=== PATIENT | male | born 1950 | race Caucasian/White ===

== ENCOUNTER 2016-12-10 13:48 | Inpatient (IN) | payer BC ==
[~2016-12-10] VITALS: Ht 160 cm; Wt 80.4 kg
[2016-12-10] MEDS ORDERED: HYDR-3516 PO (15:12)
[2016-12-10] MEDS ORDERED: MULTTAB67 PO (15:13)
[2016-12-10] MEDS ORDERED: MSM500CA PO (15:13)
[2016-12-10 17:45] VITALS: BP 170/77; PULSE 107; RESP 20; TEMP 98.3; O2SAT 99
[2016-12-10] MEDS ORDERED: SODIUM CHLORIDE FLUSH PRN IVF (18:45)
[2016-12-10] MEDS ORDERED: MORPHINE SULFATE 10 MG/ML INJ IM PRN (18:45)
[2016-12-10] MEDS ORDERED: MORPHINE SULFATE 8 MG/ML INJ IM PRN (18:58)
--- NOTE | 2016-12-10 19:38 | PD.RAD ---
Post Procedure Progress Note Pre Procedure Diagnosis: (1) Cellulitis and abscess of leg Post Procedure Diagnosis: (1) Cellulitis and abscess of leg Procedure Date: Dec 10, 2016 Supervising Radiologist: Gino Bennett Proceduralist/Assist: Rosetta Ruiz, RT(R)(), Marissa Haq RT(R)() Anesthesia: Local Plan of Activity Patient to Unit: Nursing Unit Patient Condition: Good See PACS Report for procedural detail/treatment Drainage Procedure Procedure 1 Imaging Guidance: Ultrasound Procedure Type: Abscess Drainage (left thigh) Procedure: Placement Norwegian: 8 Drainage: Suction (Accordian) Fluid Description: Purulent Gino Bennett MD Dec 10, 2016 19:38
[2016-12-10 20:00] VITALS: BP 163/75; PULSE 97; RESP 18; TEMP 99.2; O2SAT 99
[2016-12-10] MEDS: SODIUM CHLORIDE FLUSH BID IVF SCH (20:35)
[2016-12-11] VITALS (7 sets, daily range): BP systolic 146–164; BP diastolic 66–85; PULSE 82–106; RESP 16–20; TEMP 98–98.6; O2SAT 96–98
[2016-12-11] MEDS: ACETAMINOPHEN/HYDROcodone 325 MG/7.5 MG TAB PO PRN ×3 (00:25→12:35)
--- NOTE | 2016-12-11 10:02 | PD.ORT.PN ---
Subjective Subjective Remarks pt states he has significant decreased pain involving his left thigh after aspiration by I.R. he was able to sleep for first time in 3 weeks no SOB, no chest pain patient states his PCP is Dr. Aguilera who he has not seen in more than 3 years Objective Vitals Vital Signs Date Time Temp Pulse Resp B/P Pulse Ox O2 Delivery O2 Flow Rate FiO2 12/11/16 08:02 98.0 86 20 164/66 98 12/11/16 04:00 98.0 82 16 150/77 97 12/11/16 00:00 98.6 92 16 163/69 98 12/10/16 20:45 Room Air 12/10/16 20:00 99.2 97 18 163/75 99 12/10/16 17:45 98.3 107 20 170/77 99 Objective Remarks seen by Dr. Vicente Mcmanus L thigh swelling improved, pig tail catheter left thigh erythema improved +NVI Assessment & Plan Assessment and Plan L thigh probable abscess await cultures from L thigh aspiration ordered stat blood cultures await I.D. E&M continue drainage left thigh abscess by catheter Rebekah Dudley Dec 11, 2016 10:02
--- NOTE | 2016-12-11 10:24 | MH ---
cc: EVERETT VILLAFUERTE M.D. DATE OF ADMISSION 12/10/2016 CHIEF COMPLAINT Left thigh pain. HISTORY OF PRESENT ILLNESS This is a 66-year-old male who presents with the following history. The patient states that three weeks ago, he had the insidious onset of left thigh pain. At this time, the patient was under the care of my associate, Dr. Nahun Snyder. He was undergoing Synvisc injections to the knee for arthritis of the knee. The patient works building [employer]. He was using a ladder and felt that he strained a muscle in his left thigh. The patient developed pain and swelling of the thigh. MRI scan the left thigh at [facility] reported a left thigh hematoma formation. The patient was seen in the office on December 10, 2016 by myself for the first time. The patient had significant pain, swelling and erythema to the thigh area. The patient was admitted to the hospital. Blood work showed the patient had a probable abscess involving the left thigh instead of a hematoma. He had an elevated white count of 23,000. The patient also had an elevated glucoses of 368. The patient's primary care physician is Dr. Aguilera. He states he has not seen Dr. Aguilera in more than three years. The patient states he does not take medications for medical illnesses. PAST MEDICAL HISTORY See accompanying records. SOCIAL HISTORY The patient does not drink or smoke cigarettes. Denies IV or oral substance abuse. He lives at home with his . FAMILY HISTORY Negative REVIEW OF SYSTEMS Negative PHYSICAL EXAM This is a 66-year-old male who looks his stated age. LUNGS: Clear. CARDIAC: Regular rate and rhythm. No murmurs. ABDOMEN: Bowel sounds audible. No organomegaly. EXTREMITIES: Left thigh has a marked degree of swelling, tenderness, erythema anteriorly and laterally. No swelling to the knee joint. Good range of motion of the hip with no symptoms. NEUROVASCULAR: Examination is intact. The patient has no significant pain with passive range motion of the muscles in the anterior compartment of the thigh. The patient has diminished, but palpable pulses. IMPRESSION 1. Left thigh abscess 2. Diabetes mellitus PLAN The patient will be admitted to hospital. Consultation was made with infectious disease and also with hospitalist for infectious disease evaluation management and also for medical evaluation and management. I contacted intervention radiology and they recommended he undergo an ultrasound-guided aspiration and insertion of catheter. Also recommend that the radiologist obtained Gram stain, culture and sensitivity, aerobic, anaerobic and fungal smear and culture, AFB smear and culture of the specimen taken from the left thigh. Depending upon how the patient responds, it would be dependent upon if he is required to have a formal incision and drainage of the abscess. Also will obtain blood cultures. MD BRYSON Lee/CHASE /10:05 AM /10:12 AM OJ
--- NOTE | 2016-12-11 11:26 | PD.CONS ---
[facility] Consult Requested By Dr Mcmanus Reason for Consult medical management Primary Care Physician Skyler Aguilera DO Diagnoses: History of Present Illness 66-year-old male without significant past medical history for evaluation persistent pain last 3 weeks. He is status post injection of the left knee [address] Christian. Arthritis of the knee. 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 The patient developed pain and swelling of the thigh. MRI scan of the left thigh was shown left thigh hematoma. The patient was seen in the office by Dr. Rubi on December 10 2016 and was sent to [facility]. However she has not seen his primary care physician Dr. Aguilera for 3 years. Patient states he is not in any medications. He status post incision and drainage by IR. He denies fever or chills no nausea vomiting position. Pains, erythema and edema is improving. Review of Systems ROS reviewed and negative except as mentioned in HPI Past Family Social History Allergies: Coded Allergies: No Known Allergies (Unverified , 12/10/16) Past Medical History Prediabetes Past Surgical History Left shoulder surgery BL knee surgery Reported Medications Reported Meds & Active Scripts Active Reported Multiple Vitamin 1 Tab 1 Tab PO DAILY Msm (Methylsulfonylmethane) 500 Mg Cap 500 Mg PO DAILY Hydrocodone-Acetaminophen 5-325 mg Tab 1 Tab PO Q4H PRN Family History Adopted, doesn't know biological parents Social History Denies EtOH , tobacco use or illicit drug use. Physical Exam Vital Signs Vital Signs Date Time Temp Pulse Resp B/P Pulse Ox O2 Delivery O2 Flow Rate FiO2 12/11/16 08:02 98.0 86 20 164/66 98 12/11/16 04:00 98.0 82 16 150/77 97 12/11/16 00:00 98.6 92 16 163/69 98 12/10/16 20:45 Room Air 12/10/16 20:00 99.2 97 18 163/75 99 12/10/16 17:45 98.3 107 20 170/77 99 Physical Exam GENERAL: This is a well-nourished, well-developed patient, in no apparent distress. SKIN: No rashes, ecchymoses or lesions. Cool and dry. HEAD: Atraumatic. Normocephalic. No temporal or scalp tenderness. EYES: Pupils equal round and reactive. Extraocular motions intact. No scleral icterus. No injection or drainage. ENT: Nose without bleeding, purulent drainage or septal hematoma. Throat without erythema, tonsillar hypertrophy or exudate. Uvula midline. Airway patent. NECK: Trachea midline. No JVD or lymphadenopathy. Supple, nontender, no meningeal signs. CARDIOVASCULAR: Regular rate and rhythm without murmurs, gallops, or rubs. RESPIRATORY: Clear to auscultation. Breath sounds equal bilaterally. No wheezes , rales, or rhonchi. GASTROINTESTINAL: Abdomen soft, non-tender, nondistended. No hepato-splenomegaly , or palpable masses. No guarding. MUSCULOSKELETAL: Left thigh with pigtail in place . Less edema and erythema . Extremities without clubbing, cyanosis, or edema. No joint tenderness, effusion , or edema noted. No calf tenderness. Negative Homans sign bilaterally. NEUROLOGICAL: Awake and alert. Cranial nerves II through XII intact. Motor and sensory grossly within normal limits. Five out of 5 muscle strength in all muscle groups. Normal speech. Laboratory Date/Time Procedure Status Source Growth 12/11/16 10:50 Aerobic Blood Culture Received Blood Peripheral Pending 12/11/16 10:50 Anaerobic Blood Culture Received Blood Peripheral Pending 12/10/16 19:00 Gram Stain - Final Resulted Abscess Leg 12/10/16 19:00 Wound Culture Resulted Abscess Leg Pending 12/10/16 19:00 Fungal Smear - Final Resulted Abscess Leg NO FUNGAL ELEMENTS SEEN. 12/10/16 19:00 Fungal Culture Resulted Abscess Leg Pending Assessment and Plan Assessment and Plan L thigh probable abscess Cultures from L thigh aspiration are pending Consult ID if need Continue IV abx Continue drainage left thigh abscess by catheter. Ortho team following. Pain meds per pain scale. Laxatives, antiemetics, antipyretics as need. Monitor Will check a1c. Patient says he has prediabetes and is diet/exercise controlled. DVT ppx SCD/TERDs , chemical ppx per surgeon Discussed Condition With patient, nurse, familyt at bedside. Joselyn Pham MD Dec 11, 2016 11:26
[2016-12-11 12:02] LABS: BASOPHIL % 0.2 % (0.0-2.0); EOSINOPHIL # 0.1 TH/MM3 (0-0.4); EOSINOPHIL % 0.6 % (0.0-4.0); HEMATOCRIT 33.4 % (39.0-51.0); LYMPH % 8.3 % (9.0-44.0); LYMPHOCYTE # 1.3 TH/MM3 (1.0-4.8); MEAN CELL VOLUME 88.7 FL (80.0-100.0); MEAN CORPUSCULAR HEMOGLOBIN 30.5 PG (27.0-34.0); MEAN CORPUSCULAR HGB CONC 34.4 % (32.0-36.0); MONO % 9.8 % (0.0-8.0); NEUT % 81.1 % (16.0-70.0); PLATELET COUNT 411 TH/MM3 (150-450); RED BLOOD COUNT 3.76 MIL/MM3 (4.50-5.90); RED CELL DISTRIBUTION WIDTH 12.7 % (11.6-17.2); WHITE BLOOD COUNT 16.1 TH/MM3 (4.0-11.0)
[2016-12-11 12:19] LABS: HEMO FLAGS AUTO DIFF
[2016-12-11 12:53] LABS: MYELOCYTES 1 % (0-0); NEUTROPHIL # MANUAL DIFF 14.7 TH/MM3 (1.8-7.7); PLATELET ESTIMATE SMEAR NORMAL (NORMAL); PLATELET MORPHOLOGY NORMAL (NORMAL); POLYS (SEG NEUTROPHILS) 90 % (16-70); SCAN/DIFF FINAL DIFF MANUAL; WBC DIFF SAMPLE 100
[2016-12-11] MEDS ORDERED: VANCOMYCIN INJ 1,000 MG in SODIUM CHLOR 0.9% 250 ML INJ 250 ML IV ONE (13:30)
[2016-12-11] MEDS ORDERED: NALOXONE HCL 0.4 MG/ML AMP IV PRN (13:30)
[2016-12-11] MEDS ORDERED: Vancomycin Consult Pharmacy 1 EA OTHER SCH (13:30)
[2016-12-11] MEDS ORDERED: MORPHINE SULFATE 4 MG/ML INJ IV PRN ×3 (14:00)
[2016-12-11] MEDS: ceFAZolin 2 GM PREMIX 50 ML IV SCH ×2 (14:41→21:32)
[2016-12-11] MEDS: SODIUM CHLORIDE FLUSH BID IVF SCH ×2 (14:48→19:55)
--- NOTE | 2016-12-11 15:09 | PD.CONS ---
History of Present Illness Service Infectious disease Consult Requested By Dr. Vicente Mcmanus Reason for Consult Evaluate patient for possible infected hematoma Primary Care Physician Skyler Aguilera DO Diagnoses: History of Present Illness Patient seen and examined. Records reviewed. Patient is a 66-year-old male admitted to the hospital for further evaluation of the redness and swelling, and pain on his left thigh. Patient 5 weeks ago started undergoing Synvisc injections to the knee for arthritis of the knee. Patient had his first 2 injections which was placed on the lateral aspect of his left knee. It is about a week apart. Right before he is scheduled for his third injection he started experiencing pain, some mild swelling, as well as some mild redness on his left thigh. He had his third injection which was on the medial aspect now all of his left knee. The redness pain and swelling started worsening, and he apparently had an MRI of the left thigh which showed findings all torn muscle and some hematoma formation. He was not improving so he was seen again in follow-up and another MRI was done. There was some concerns now that this is becoming an abscess so the patient was brought to the hospital for further management. He was initially scheduled to have surgery, but he underwent aspiration of the fluid by interventional radiologist. Patient denies any fever or chills or sweats. He has not had any recent infection of the skin, respiratory infection, urinary infection, or any kind of dental infection. Patient is edentulous and wears upper and lower dentures and has had this for at least 5 years or more. 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 He denies any urinary complaints. He has had blood work done prior to admission his white count was elevated. His white count here is been 16,000. His been afebrile. Infectious disease consultation is requested to evaluate the patient. Review of Systems Constitutional: DENIES: Fever, Chills, Night Sweats Eyes: DENIES: Eye pain Ears, nose, mouth, throat: DENIES: Nasal discharge, Oral lesions, Throat pain, Ear Pain, Running Nose, Sinus Pain Respiratory: DENIES: Cough, Shortness of breath Cardiovascular: DENIES: Chest pain Gastrointestinal: DENIES: Abdominal pain, Diarrhea, Nausea, Vomiting, Difficulty Swallowing Genitourinary: DENIES: Hematuria, Dysuria Musculoskeletal: COMPLAINS OF: Joint pain, Joint Swelling Integumentary: DENIES: Rash Hematologic/lymphatic: DENIES: Lymphadenopathy Immunologic/allergic: DENIES: Urticaria Neurologic: DENIES: Headache Psychiatric: DENIES: Anxiety, Confusion, Hallucinations Past Family Social History Allergies: Coded Allergies: No Known Allergies (Unverified , 12/10/16) Past Medical History ?Prediabetes Past Surgical History L shoulder surgery Chaim knee arthroscopy Active Ordered Medications Rozel Morphine Social History No smoking No ETOH abuse No illicit drug use Physical Exam Vital Signs Vital Signs Date Time Temp Pulse Resp B/P Pulse Ox O2 Delivery O2 Flow Rate FiO2 12/11/16 08:02 Room Air 12/11/16 08:02 98.0 86 20 164/66 98 12/11/16 04:00 98.0 82 16 150/77 97 12/11/16 00:00 98.6 92 16 163/69 98 12/10/16 20:45 Room Air 12/10/16 20:00 99.2 97 18 163/75 99 12/10/16 17:45 98.3 107 20 170/77 99 Physical Exam GENERAL: This is a well-nourished, well-developed male, awake and alert, in no apparent distress. SKIN: Cool and dry. No generalized rash, ecchymosis or embolic lesions. HEAD: Atraumatic. Normocephalic. No temporal or scalp tenderness. EYES: [place] conjunctivae no particular hemorrhage. Pupils equal round and reactive. Extraocular motions intact. No scleral icterus. No injection or drainage. ENT: Nose without bleeding, or purulent drainage. Wears upper and lower dentures. Throat without erythema, or exudate. Uvula midline. Airway patent. NECK: Trachea midline. No JVD or lymphadenopathy. Supple, nontender, no meningeal signs. CARDIOVASCULAR: Regular rate and rhythm without murmurs, gallops, or rubs. RESPIRATORY: Clear to auscultation. Breath sounds equal bilaterally. No wheezes , rales, or rhonchi. GASTROINTESTINAL: Abdomen soft, non-tender, nondistended. Bowel sounds are present and normoactive. No hepato-splenomegaly, or palpable masses. No guarding. MUSCULOSKELETAL: Extremities without clubbing, cyanosis, or edema in RLE. LLE - knee is swollen, there is erythema on anterior thigh and L knee, indurated and tender to touch, has percutaneous drain in place with seroanguineous fluid. very limited ROM in the L knee. No calf tenderness. Negative Homans sign bilaterally. NEUROLOGICAL: Awake and alert. Cranial nerves II through XII intact. Motor and sensory grossly within normal limits. Five out of 5 muscle strength in all muscle groups. Normal speech. PSYCH: Calm and cooperative LINE: PIV with no evidence of infection Laboratory Laboratory Tests Test 12/11/16 11:49 White Blood Count 16.1 Red Blood Count 3.76 Hemoglobin 11.5 Hematocrit 33.4 Mean Corpuscular Volume 88.7 Mean Corpuscular Hemoglobin 30.5 Mean Corpuscular Hemoglobin 34.4 Concent Red Cell Distribution Width 12.7 Platelet Count 411 Mean Platelet Volume 7.6 Neutrophils (%) (Auto) 81.1 Lymphocytes (%) (Auto) 8.3 Monocytes (%) (Auto) 9.8 Eosinophils (%) (Auto) 0.6 Basophils (%) (Auto) 0.2 Neutrophils # (Auto) 13.0 Lymphocytes # (Auto) 1.3 Monocytes # (Auto) 1.6 Eosinophils # (Auto) 0.1 Basophils # (Auto) 0.0 CBC Comment AUTO DIFF Differential Total Cells 100 Counted Neutrophils % (Manual) 90 Lymphocytes % 3 Monocytes % 6 Neutrophils # (Manual) 14.7 Myelocytes 1 Differential Comment FINAL DIFF MANUAL Platelet Estimate NORMAL Platelet Morphology Comment NORMAL Date/Time Procedure Status Source Growth 12/11/16 10:50 Aerobic Blood Culture Received Blood Peripheral Pending 12/11/16 10:50 Anaerobic Blood Culture Received Blood Peripheral Pending 12/10/16 19:00 Gram Stain - Final Resulted Abscess Leg 12/10/16 19:00 Wound Culture Resulted Abscess Leg Pending 12/10/16 19:00 Fungal Smear - Final Resulted Abscess Leg NO FUNGAL ELEMENTS SEEN. 12/10/16 19:00 Fungal Culture Resulted Abscess Leg Pending Result Diagram: 12/11/16 1149 Assessment and Plan Assessment and Plan IMPRESSION Infected hematoma, L thigh, abscess Likely with diabetes RECOMMENDATION Follow C/S Baseline labs - ESR, CRP, CMP IV Vanco IV Ancef G/S shows GPC in pairs and clusters, likely Staph Monitor progress I will follow along with you Thank you for this consultation Discussed Condition With Explained plan to patient and Lisha Mcclendon MD Dec 11, 2016 15:09
[2016-12-11 15:33] LABS: ALT (GPT) 11 U/L (12-78); ANION GAP 10 MEQ/L (5-15); AST (GOT) 11 U/L (15-37); BICARBONATE 24.1 MEQ/L (21.0-32.0); BLOOD UREA NITROGEN 16 MG/DL (7-18); CHLORIDE 98 MEQ/L (98-107); POTASSIUM 3.6 MEQ/L (3.5-5.1); SODIUM (NA) 132 MEQ/L (136-145)
[2016-12-11 15:39] LABS: ALKALINE PHOSPHATASE 104 U/L (45-117); TOTAL BILIRUBIN ADULT 0.3 MG/DL (0.2-1.0)
[2016-12-11] MEDS: VANCOMYCIN INJ 1,250 MG in SODIUM CHLOR 0.9% 250 ML INJ 250 ML IV SCH (17:04)
[2016-12-11] MEDS: ACETAMINOPHEN/HYDROcodone 325 MG/10 MG TAB PO PRN (19:56)
[2016-12-12] VITALS: BP 166/79; PULSE 88; RESP 18; TEMP 98.5; O2SAT 97
[2016-12-12] MEDS: MORPHINE SULFATE 4 MG/ML INJ IV PRN ×2 (00:07→14:14)
[2016-12-12] MEDS: LACTATED RINGER'S 1000 ML INJ 1,000 ML IV SCH ×2 (00:45→20:45)
[2016-12-12] MEDS: VANCOMYCIN INJ 1,250 MG in SODIUM CHLOR 0.9% 250 ML INJ 250 ML IV SCH (03:27)
[2016-12-12] MEDS: ACETAMINOPHEN/HYDROcodone 325 MG/10 MG TAB PO PRN ×4 (03:27→21:36)
[2016-12-12 04:00] VITALS: BP 164/75; PULSE 88; RESP 16; TEMP 98; O2SAT 98
[2016-12-12] MEDS: ceFAZolin 2 GM PREMIX 50 ML IV SCH ×3 (05:37→21:34)
--- NOTE | 2016-12-12 06:51 | PD.ORT.PN ---
Subjective Subjective Remarks Continued decreased L thigh pain No sob,no chest pain Objective Vitals Vital Signs Date Time Temp Pulse Resp B/P Pulse Ox O2 Delivery O2 Flow Rate FiO2 12/12/16 04:00 98.0 88 16 164/75 98 12/12/16 00:00 98.5 88 18 166/79 97 12/11/16 20:00 97 Room Air 12/11/16 20:00 98.2 93 18 146/85 97 12/11/16 16:02 98.0 85 18 158/75 98 12/11/16 15:00 90 12/11/16 12:02 98.2 106 20 158/70 96 12/11/16 08:02 Room Air 12/11/16 08:02 98.0 86 20 164/66 98 I/O 12/11/16 12/11/16 12/11/16 12/12/16 12/12/16 12/12/16 07:00 15:00 23:00 07:00 15:00 23:00 Intake Total 1250 ml 240 ml 240 ml Output Total 720 ml 745 ml 925 ml Balance 530 ml -505 ml -685 ml Intake Oral 1250 ml 240 ml 240 ml Output Urine Total 720 ml 700 ml 900 ml Drainage Total 0 ml 45 ml 25 ml # Voids 2 # Bowel Movements 1 1 0 Result Diagram: 12/11/16 1149 12/11/16 1500 Objective Remarks No L knee pain,swelling L thigh swelling improved, pig tail catheter left thigh erythema improved +NVI Assessment & Plan Assessment and Plan L thigh abscess;h/o diabetes Await cultures from L thigh aspiration;+ Staph,await sensitivities Ordered blood cultures-still pending Patient responding well to current treatment;no indication for surgical I&D at this time Appreciate I.D. E&M Continue drainage left thigh abscess by catheter Possible d/c home on Thursday with cath and antibiotics Vicente Mcmanus MD Dec 12, 2016 06:51
[2016-12-12 08:02] VITALS: BP 157/71; PULSE 88; RESP 18; TEMP 98.1; O2SAT 97
[2016-12-12 08:05] LABS: AUTOMATED NEUTROPHIL # 9.8 TH/MM3 (1.8-7.7); BASOPHIL % 0.3 % (0.0-2.0); EOSINOPHIL # 0.1 TH/MM3 (0-0.4); EOSINOPHIL % 0.9 % (0.0-4.0); HEMATOCRIT 34.4 % (39.0-51.0); LYMPH % 11.4 % (9.0-44.0); LYMPHOCYTE # 1.4 TH/MM3 (1.0-4.8); MEAN CELL VOLUME 88.6 FL (80.0-100.0); MEAN CORPUSCULAR HGB CONC 33.8 % (32.0-36.0); MONO % 10.5 % (0.0-8.0); NEUT % 76.9 % (16.0-70.0); PLATELET COUNT 430 TH/MM3 (150-450); RED BLOOD COUNT 3.88 MIL/MM3 (4.50-5.90); RED CELL DISTRIBUTION WIDTH 12.9 % (11.6-17.2); WHITE BLOOD COUNT 12.7 TH/MM3 (4.0-11.0)
[2016-12-12] MEDS: SODIUM CHLORIDE FLUSH BID IVF SCH ×2 (08:14→21:36)
[2016-12-12 08:16] LABS: HEMO FLAGS AUTO DIFF
[2016-12-12 08:54] LABS: BANDS 5 % (0-6); MYELOCYTES 3 % (0-0); NEUTROPHIL # MANUAL DIFF 10.2 TH/MM3 (1.8-7.7); PLATELET ESTIMATE SMEAR NORMAL (NORMAL); PLATELET MORPHOLOGY NORMAL (NORMAL); POLYS (SEG NEUTROPHILS) 72 % (16-70); SCAN/DIFF FINAL DIFF MANUAL; WBC DIFF SAMPLE 100
--- NOTE | 2016-12-12 10:52 | HHI.PR ---
Subjective Remarks Follow-up left thigh abscess. The patient is still having pain and swelling in the left upper leg, but states that it is getting better. Denies fever, chills, night sweats, chest pain, dyspnea. No nausea or vomiting. Objective Vitals Vital Signs Date Time Temp Pulse Resp B/P Pulse Ox O2 Delivery O2 Flow Rate FiO2 12/12/16 08:02 98.1 88 18 157/71 97 12/12/16 07:52 Room Air 12/12/16 04:00 98.0 88 16 164/75 98 12/12/16 00:00 98.5 88 18 166/79 97 12/11/16 20:00 97 Room Air 12/11/16 20:00 98.2 93 18 146/85 97 12/11/16 16:02 98.0 85 18 158/75 98 12/11/16 15:00 90 12/11/16 12:02 98.2 106 20 158/70 96 I/O 12/11/16 12/11/16 12/11/16 12/12/16 12/12/16 12/12/16 07:00 15:00 23:00 07:00 15:00 23:00 Intake Total 1250 ml 240 ml 240 ml Output Total 720 ml 745 ml 925 ml Balance 530 ml -505 ml -685 ml Intake Oral 1250 ml 240 ml 240 ml Output Urine Total 720 ml 700 ml 900 ml Drainage Total 0 ml 45 ml 25 ml # Voids 2 # Bowel Movements 1 1 0 Result Diagram: 12/12/16 0702 12/11/16 1500 Objective Remarks General: No acute distress. Heart: Regular rate and rhythm. No murmur. Lungs: Clear to auscultation bilaterally. No wheezes, rales, or rhonchi. Breathing is nonlabored. Abdomen: Soft, nontender, nondistended. Extremities: Left thigh is swollen and tender. Drain in place. There is erythema surrounding the drain. Psych: Alert and oriented. Procedures 12/10/16 ultrasound-guided drainage of abscess, left thigh Urinary Catheter: No Vascular Central Line Catheter: No A/P Problem List: (1) Cellulitis and abscess of leg ICD Code: L02.419 Status: Acute Assessment and Plan 1. Abscess, left thigh: Wound culture growing MSSA. Blood cultures are pending. Appreciate infectious disease recommendations. Continue antibiotics. Drainage catheter in place. Management per orthopedic surgery. 2. DVT prophylaxis: ALEX Jordan. Pedro Luis Mcmahon MD Dec 12, 2016 10:52
[2016-12-12 12:02] VITALS: BP 153/68; PULSE 89; RESP 18; TEMP 97.9; O2SAT 97
[2016-12-12 14:14] LABS: HEMOGLOBIN A1a 1.5 %; HEMOGLOBIN Ao 74.4 %; HEMOGLOBIN F 1.9 %; HEMOGLOBIN LA1C 3.1 %; HEMOGLOBIN P3 5.1 %
--- NOTE | 2016-12-12 14:36 | HHI.IDPN ---
Subjective Subjective Remarks Reviewed Temps okay Still with significant pain in the left thigh Fluid culture with MSSA Sedimentation rate 37 CRP 20 Blood cultures negative WBC down to 12 Antibiotics Cefazolin Vancomycin Lines PIV Past Medical History Reviewed Allergies: Coded Allergies: No Known Allergies (Unverified , 12/10/16) Objective . Vital Signs Date Time Temp Pulse Resp B/P Pulse Ox O2 Delivery O2 Flow Rate FiO2 12/12/16 12:02 97.9 89 18 153/68 97 12/12/16 08:02 98.1 88 18 157/71 97 12/12/16 07:52 Room Air 12/12/16 04:00 98.0 88 16 164/75 98 12/12/16 00:00 98.5 88 18 166/79 97 12/11/16 20:00 97 Room Air 12/11/16 20:00 98.2 93 18 146/85 97 12/11/16 16:02 98.0 85 18 158/75 98 12/11/16 15:00 90 12/11/16 12/11/16 12/12/16 15:00 23:00 07:00 Intake Total 1250 ml 240 ml 240 ml Output Total 720 ml 745 ml 925 ml Balance 530 ml -505 ml -685 ml Intake Oral 1250 ml 240 ml 240 ml Output Urine Total 720 ml 700 ml 900 ml Drainage Total 0 ml 45 ml 25 ml # Voids 2 # Bowel Movements 1 1 0 . Laboratory Tests Test 12/11/16 12/11/16 12/12/16 11:49 15:00 07:02 White Blood Count 16.1 TH/MM3 12.7 TH/MM3 Red Blood Count 3.76 MIL/MM3 3.88 MIL/MM3 Hemoglobin 11.5 GM/DL 11.6 GM/DL Hematocrit 33.4 % 34.4 % Mean Corpuscular Volume 88.7 FL 88.6 FL Mean Corpuscular Hemoglobin 30.5 PG 30.0 PG Mean Corpuscular Hemoglobin 34.4 % 33.8 % Concent Red Cell Distribution Width 12.7 % 12.9 % Platelet Count 411 TH/MM3 430 TH/MM3 Mean Platelet Volume 7.6 FL 7.8 FL Neutrophils (%) (Auto) 81.1 % 76.9 % Lymphocytes (%) (Auto) 8.3 % 11.4 % Monocytes (%) (Auto) 9.8 % 10.5 % Eosinophils (%) (Auto) 0.6 % 0.9 % Basophils (%) (Auto) 0.2 % 0.3 % Neutrophils # (Auto) 13.0 TH/MM3 9.8 TH/MM3 Lymphocytes # (Auto) 1.3 TH/MM3 1.4 TH/MM3 Monocytes # (Auto) 1.6 TH/MM3 1.3 TH/MM3 Eosinophils # (Auto) 0.1 TH/MM3 0.1 TH/MM3 Basophils # (Auto) 0.0 TH/MM3 0.0 TH/MM3 CBC Comment AUTO DIFF AUTO DIFF Differential Total Cells 100 100 Counted Neutrophils % (Manual) 90 % 72 % Lymphocytes % 3 % 13 % Monocytes % 6 % 7 % Neutrophils # (Manual) 14.7 TH/MM3 10.2 TH/MM3 Myelocytes 1 % 3 % Differential Comment FINAL DIFF FINAL DIFF MANUAL MANUAL Platelet Estimate NORMAL NORMAL Platelet Morphology Comment NORMAL NORMAL Erythrocyte Sedimentation Rate 37 mm/hr Band Neutrophils % 5 % Red Cell Morphology Comment NORMAL Laboratory Tests Test 12/11/16 15:00 Sodium Level 132 MEQ/L Potassium Level 3.6 MEQ/L Chloride Level 98 MEQ/L Carbon Dioxide Level 24.1 MEQ/L Anion Gap 10 MEQ/L Blood Urea Nitrogen 16 MG/DL Creatinine 0.71 MG/DL Random Glucose 389 MG/DL Calcium Level 8.5 MG/DL Total Bilirubin 0.3 MG/DL Aspartate Amino Transf 11 U/L (AST/SGOT) Alanine Aminotransferase 11 U/L (ALT/SGPT) Alkaline Phosphatase 104 U/L C-Reactive Protein 20.50 MG/DL Total Protein 6.1 GM/DL Albumin 1.7 GM/DL Microbiology Date/Time Procedure Status Source Growth 12/10/16 19:00 Gram Stain - Final Complete Abscess Leg 12/10/16 19:00 Wound Culture - Final Complete Staphylococcus Aureus 12/10/16 19:00 Fungal Smear - Final Resulted Abscess Leg NO FUNGAL ELEMENTS SEEN. 12/10/16 19:00 Fungal Culture Resulted Abscess Leg Pending 12/11/16 10:46 Aerobic Blood Culture - Preliminary Resulted Blood Peripheral NO GROWTH IN 1 DAY 12/11/16 10:46 Anaerobic Blood Culture - Preliminary Resulted Blood Peripheral NO GROWTH IN 1 DAY 12/11/16 10:50 Aerobic Blood Culture - Preliminary Resulted Blood Peripheral NO GROWTH IN 1 DAY 12/11/16 10:50 Anaerobic Blood Culture - Preliminary Resulted Blood Peripheral NO GROWTH IN 1 DAY Physical Exam GENERAL: awake and alert, in no apparent distress. SKIN: Cool and dry. No generalized rash, ecchymosis or embolic lesions. HEENT: [place] conjunctivae. No scleral icterus. No injection or drainage. Moist oral mucosa. Throat without erythema, or exudate. NECK: Trachea midline. No JVD or lymphadenopathy. Supple, nontender, no meningeal signs. CARDIOVASCULAR: Regular rate and rhythm without murmurs, gallops, or rubs. RESPIRATORY: Clear to auscultation. Breath sounds equal bilaterally. No wheezes , rales, or rhonchi. GASTROINTESTINAL: Abdomen soft, non-tender, nondistended. Bowel sounds are present and normoactive. No hepato-splenomegaly, or palpable masses. No guarding. MUSCULOSKELETAL: Extremities without clubbing, cyanosis, or edema in RLE. LLE - knee is swollen, there is improving erythema on anterior thigh and L knee, indurated and tender to touch, has percutaneous drain in place with serosanguineous fluid. very limited ROM in the L knee. No calf tenderness. . NEUROLOGICAL: Grossly nonfocal PSYCH: Calm and cooperative LINE: PIV with no evidence of infection Assessment & Plan Remarks IMPRESSION Infected hematoma, L thigh, abscess - Has percutaneous drain placed, culture with MSSA Likely with diabetes RECOMMENDATION Stop IV Vanco Continue IV Ancef Monitor progress Once output from the drain decrease, we will need to do CT or MRI to determine status of the fluid collection Will determine course of treatment once workup is completed Explained plan to the patient Discussed with Lisha Berumen MD Dec 12, 2016 14:36
--- NOTE | 2016-12-12 15:24 | RADRPT ---
EXAM DATE/TIME: 12/10/2016 18:05 [facility] COMPARISON: No previous studies available for comparison. INDICATIONS : Patient with a history of left thigh hematoma and abscess. MEDICAL HISTORY : Diabetes SURGICAL HISTORY : Left shoulder surgery Bilateral knee arthroscopy ENCOUNTER: Initial ACUITY: 3 weeks PAIN SCORE: 10/10 LOCATION: Left thigh MEDICATION(S): Local DEVICE(S): 1.) 8 Japanese locking catheter PROCEDURE : 1. Abscess drainage. The risks, benefits and alternatives to the procedure were explained and verbal and written consent w as obtained. The site was prepped in sterile fashion. Full sterile technique was used, including ca p, mask, sterile gloves and gown and a large sterile sheet. Hand hygiene and 2% chlorhexidine and/or betadine/alcohol prep was utilized per protocol for cutaneous antisepsis. The skin and subcutaneous tissues were infiltrated with local anesthetic solution. Ultrasound evaluation of the left thigh showed a very complex sonographic image with an elongated flu id collection tracking along the myofascial plane of what I believe is the rectus femoris muscle bucio y. Additional areas of heterogeneity within the rectus femoris itself inferiorly could represent a sm all muscular abscess. The fluid collection along the myofascial plane was accessed with a 21 gauge micropuncture needle usi ng ultrasound guidance. A .018 wire was advanced through the needle into the collection. 34 dilator w as advanced [id number]. Inner stylet and wire were removed. Aspiration of the other 4 Japanese dilat or produced 10 cc of purulent material which was sent to laboratory for analysis. The 035 wire was ad vanced through the dilator and the tract serially dilated to accommodate the 8 Japanese locking cathete r. Catheter was placed to accordion drainage. CONCLUSION: 1. Uncomplicated catheter placement for left thigh abscess. 2. There may be multiple components. The more superficial fluid collection along the myofascial borde r was accessed and drained. I do not believe patient could tolerate deeper drainage in his current cl inical condition. 3. After a few days of percutaneous drainage, would recommend repeat imaging of the left thigh with e ither ultrasound or CT for further characterization. If loculated collections persist, patient may ne ed additional drainage catheters. Gino Bennett MD on December 12, 2016 at 15:16 Board Certified Radiologist. This report was verified electronically.
[2016-12-12 16:02] VITALS: BP 158/68; PULSE 91; RESP 18; TEMP 98.4; O2SAT 97
[2016-12-12 20:00] VITALS: BP 179/81; PULSE 102; RESP 18; TEMP 98.1; O2SAT 95
[2016-12-13] VITALS: BP 150/72; PULSE 97; RESP 16; TEMP 98; O2SAT 95
[2016-12-13] MEDS ORDERED: PHARMACY ORDERED LAB XX ONE (03:45)
[2016-12-13 04:00] VITALS: BP 170/74; PULSE 85; RESP 16; TEMP 98; O2SAT 96
[2016-12-13] MEDS: ACETAMINOPHEN/HYDROcodone 325 MG/10 MG TAB PO PRN ×5 (04:13→22:06)
[2016-12-13] MEDS: ceFAZolin 2 GM PREMIX 50 ML IV SCH ×3 (05:28→22:06)
[2016-12-13] MEDS: LACTATED RINGER'S 1000 ML INJ 1,000 ML IV SCH ×2 (05:29→16:35)
[2016-12-13] MEDS ORDERED: DEXTROSE 50% IN WATER 50 ML VIAL(D50) IV PUSH PRN (07:30)
[2016-12-13] MEDS ORDERED: GLUCAGON 1 MG/ML VIAL OTHER PRN (07:30)
[2016-12-13 08:28] VITALS: BP 183/83; PULSE 84; RESP 19; TEMP 97.9; O2SAT 98
[2016-12-13] MEDS: SODIUM CHLORIDE FLUSH BID IVF SCH ×2 (08:38→21:00)
--- NOTE | 2016-12-13 11:35 | PD.ORT.PN ---
Subjective Subjective Remarks pain slightly improved. drain in place. Objective Vitals Vital Signs Date Time Temp Pulse Resp B/P Pulse Ox O2 Delivery O2 Flow Rate FiO2 12/13/16 11:18 Room Air 12/13/16 08:28 97.9 84 19 183/83 98 12/13/16 04:00 98.0 85 16 170/74 96 12/13/16 00:00 98.0 97 16 150/72 95 12/12/16 20:00 98.1 102 18 179/81 95 12/12/16 20:00 Room Air 12/12/16 16:02 98.4 91 18 158/68 97 12/12/16 12:02 97.9 89 18 153/68 97 I/O 12/12/16 12/12/16 12/12/16 12/13/16 12/13/16 12/13/16 07:00 15:00 23:00 07:00 15:00 23:00 Intake Total 240 ml 480 ml 240 ml 360 ml Output Total 925 ml 830 ml 400 ml 1500 ml Balance -685 ml -350 ml -160 ml -1140 ml Intake Oral 240 ml 480 ml 240 ml 360 ml Output Urine Total 900 ml 800 ml 400 ml 1500 ml Drainage Total 25 ml 30 ml # Bowel Movements 0 0 0 0 Result Diagram: 12/12/16 0702 12/11/16 1500 Objective Remarks No L knee pain,swelling L thigh swelling improved, pig tail catheter left thigh erythema improved +NVI Assessment & Plan Assessment and Plan L thigh abscess;h/o diabetes Await cultures from L thigh aspiration;+ Staph,await sensitivities Ordered blood cultures-still pending Patient responding well to current treatment;no indication for surgical I&D at this time Appreciate I.D. E&M Continue drainage left thigh abscess by catheter Possible d/c home on Thursday with cath and antibiotics Ryan uBnch Dec 13, 2016 11:35
[2016-12-13 12:08] VITALS: BP 163/72; PULSE 83; RESP 18; TEMP 97.9; O2SAT 96
[2016-12-13] MEDS: INSULIN ASPART SUPPLEMENTAL SCALE SQ SCH ×3 (12:29→22:07)
--- NOTE | 2016-12-13 13:38 | HHI.PR ---
Subjective Remarks Follow-up thigh abscess, diabetes mellitus. Patient feels that his left leg is slowly getting better. Still quite painful with any movement, but able to bend the left knee more today than yesterday. No nausea or vomiting. No diarrhea or constipation. Objective Vitals Vital Signs Date Time Temp Pulse Resp B/P Pulse Ox O2 Delivery O2 Flow Rate FiO2 12/13/16 12:08 97.9 83 18 163/72 96 12/13/16 11:18 Room Air 12/13/16 08:28 97.9 84 19 183/83 98 12/13/16 04:00 98.0 85 16 170/74 96 12/13/16 00:00 98.0 97 16 150/72 95 12/12/16 20:00 98.1 102 18 179/81 95 12/12/16 20:00 Room Air 12/12/16 16:02 98.4 91 18 158/68 97 I/O 12/12/16 12/12/16 12/12/16 12/13/16 12/13/16 12/13/16 07:00 15:00 23:00 07:00 15:00 23:00 Intake Total 240 ml 480 ml 240 ml 360 ml Output Total 925 ml 830 ml 400 ml 1500 ml Balance -685 ml -350 ml -160 ml -1140 ml Intake Oral 240 ml 480 ml 240 ml 360 ml Output Urine Total 900 ml 800 ml 400 ml 1500 ml Drainage Total 25 ml 30 ml # Bowel Movements 0 0 0 0 Result Diagram: 12/12/16 0702 12/11/16 1500 Imaging Last Impressions Abscess Drainage X-Ray 12/10/16 0000 Signed Impressions: Service Date/Time: Saturday, December 10, 2016 18:05 - CONCLUSION: 1. Uncomplicated catheter placement for left thigh abscess. 2. There may be multiple components. The more superficial fluid collection along the myofascial border was accessed and drained. I do not believe patient could tolerate deeper drainage in his current clinical condition. 3. After a few days of percutaneous drainage, would recommend repeat imaging of the left thigh with either ultrasound or CT for further characterization. If loculated collections persist , patient may need additional drainage catheters. Gino Bennett MD Objective Remarks General: No acute distress. Heart: Regular rate and rhythm. No murmur. Lungs: Clear to auscultation bilaterally. No wheezes, rales, or rhonchi. Breathing is nonlabored. Abdomen: Soft, nontender, nondistended. Extremities: Left thigh is swollen and tender, slightly improved compared to yesterday. Drain in place. There is erythema surrounding the drain. Psych: Alert and oriented. Procedures 12/10/16 ultrasound-guided drainage of abscess, left thigh Urinary Catheter: No Vascular Central Line Catheter: No A/P Problem List: (1) Cellulitis and abscess of leg ICD Code: L02.419 Status: Acute (2) Diabetes mellitus ICD Code: E11.9 Status: Acute Assessment and Plan 1. Abscess, left thigh: Wound culture growing MSSA. Blood cultures are pending. Appreciate infectious disease recommendations. Continue antibiotics. Drainage catheter in place. Management per orthopedic surgery. 2. Diabetes mellitus: Monitor Accu-Cheks and cover with sliding scale insulin. Start Levemir. Diabetic diet. Hemoglobin A1c is 12.7. The patient states that he is willing to do whatever he needs to to get the sugars under control. He declines the offer of natural resources extension educator consult. 3. DVT prophylaxis: ALEX Jordan. Problem Qualifiers (1) Diabetes mellitus: Pedro Luis Mcmahon MD Dec 13, 2016 13:38
[2016-12-13] MEDS: INSULIN DETEMIR 100 UNITS/ML VIAL SQ SCH ×2 (15:17→22:07)
[2016-12-13 16:30] VITALS: BP 153/72; PULSE 83; RESP 18; TEMP 97.9; O2SAT 98
[2016-12-13 20:46] VITALS: BP 160/78; PULSE 91; RESP 18; TEMP 98.2; O2SAT 98
[2016-12-14 00:29] VITALS: BP 157/73; PULSE 78; RESP 16; TEMP 98.1; O2SAT 98
[2016-12-14] MEDS: ACETAMINOPHEN/HYDROcodone 325 MG/10 MG TAB PO PRN ×6 (02:16→23:35)
[2016-12-14] MEDS: LACTATED RINGER'S 1000 ML INJ 1,000 ML IV SCH ×3 (02:17→21:43)
[2016-12-14 04:33] VITALS: BP 163/74; PULSE 77; RESP 16; TEMP 97.8; O2SAT 97
[2016-12-14] MEDS: ceFAZolin 2 GM PREMIX 50 ML IV SCH ×3 (05:08→21:42)
[2016-12-14] MEDS: INSULIN ASPART SUPPLEMENTAL SCALE SQ SCH ×4 (06:23→21:41)
[2016-12-14 08:14] VITALS: BP 153/78; PULSE 79; RESP 18; TEMP 97.8; O2SAT 97
[2016-12-14] MEDS: INSULIN DETEMIR 100 UNITS/ML VIAL SQ SCH ×2 (08:42→21:42)
--- NOTE | 2016-12-14 09:25 | PD.ORT.PN ---
Subjective Subjective Remarks pain continues to slowly improve. thigh less tender. drain in place. Objective Vitals Vital Signs Date Time Temp Pulse Resp B/P Pulse Ox O2 Delivery O2 Flow Rate FiO2 12/14/16 08:14 97.8 79 18 153/78 97 12/14/16 04:33 97.8 77 16 163/74 97 12/14/16 00:29 98.1 78 16 157/73 98 12/13/16 21:00 Room Air 12/13/16 20:46 98.2 91 18 160/78 98 12/13/16 16:30 97.9 83 18 153/72 98 12/13/16 12:08 97.9 83 18 163/72 96 12/13/16 11:18 Room Air I/O 12/13/16 12/13/16 12/13/16 12/14/16 12/14/16 12/14/16 07:00 15:00 23:00 07:00 15:00 23:00 Intake Total 360 ml 720 ml 800 ml 500 ml Output Total 1500 ml 1200 ml 900 ml Balance -1140 ml -480 ml -100 ml 500 ml Intake Oral 360 ml 720 ml 800 ml 500 ml Output Urine Total 1500 ml 1200 ml 900 ml # Voids 3 # Bowel Movements 0 0 1 0 Result Diagram: 12/12/16 0702 12/11/16 1500 Objective Remarks No L knee pain,swelling L thigh swelling improved, pig tail catheter left thigh erythema improving, less tender +NVI Assessment & Plan Assessment and Plan L thigh abscess;h/o diabetes cultures from L thigh aspiration;+ Staph,MSSA blood cultures - NGTD Patient responding well to current treatment Appreciate I.D. E&M Continue drainage left thigh abscess by catheter Possible d/c home on Thursday with cath and antibiotics Ryan Bunch Dec 14, 2016 09:25
[2016-12-14] MEDS: SODIUM CHLORIDE FLUSH BID IVF SCH ×2 (09:55→21:00)
--- NOTE | 2016-12-14 10:00 | HHI.PR ---
Subjective Remarks Follow up thigh abscess, diabetes mellitus. Patient states that he is feeling a little better today. Leg is less painful. Continues to drain. Objective Vitals Vital Signs Date Time Temp Pulse Resp B/P Pulse Ox O2 Delivery O2 Flow Rate FiO2 12/14/16 08:14 97.8 79 18 153/78 97 12/14/16 04:33 97.8 77 16 163/74 97 12/14/16 00:29 98.1 78 16 157/73 98 12/13/16 21:00 Room Air 12/13/16 20:46 98.2 91 18 160/78 98 12/13/16 16:30 97.9 83 18 153/72 98 12/13/16 12:08 97.9 83 18 163/72 96 12/13/16 11:18 Room Air I/O 12/13/16 12/13/16 12/13/16 12/14/16 12/14/16 12/14/16 07:00 15:00 23:00 07:00 15:00 23:00 Intake Total 360 ml 720 ml 800 ml 500 ml Output Total 1500 ml 1200 ml 900 ml Balance -1140 ml -480 ml -100 ml 500 ml Intake Oral 360 ml 720 ml 800 ml 500 ml Output Urine Total 1500 ml 1200 ml 900 ml # Voids 3 # Bowel Movements 0 0 1 0 Result Diagram: 12/12/16 0702 12/11/16 1500 Imaging Last Impressions Abscess Drainage X-Ray 12/10/16 0000 Signed Impressions: Service Date/Time: Saturday, December 10, 2016 18:05 - CONCLUSION: 1. Uncomplicated catheter placement for left thigh abscess. 2. There may be multiple components. The more superficial fluid collection along the myofascial border was accessed and drained. I do not believe patient could tolerate deeper drainage in his current clinical condition. 3. After a few days of percutaneous drainage, would recommend repeat imaging of the left thigh with either ultrasound or CT for further characterization. If loculated collections persist , patient may need additional drainage catheters. Gino Bennett MD Objective Remarks General: No acute distress. Heart: Regular rate and rhythm. No murmur. Lungs: Clear to auscultation bilaterally. No wheezes, rales, or rhonchi. Breathing is nonlabored. Abdomen: Soft, nontender, nondistended. Extremities: Left thigh swelling and tenderness continued to improve. Drain in place. There is less erythema surrounding the drain. Psych: Alert and oriented. Procedures 12/10/16 ultrasound-guided drainage of abscess, left thigh Urinary Catheter: No Vascular Central Line Catheter: No A/P Problem List: (1) Cellulitis and abscess of leg ICD Code: L02.419 Status: Acute (2) Diabetes mellitus ICD Code: E11.9 Status: Acute Assessment and Plan 1. Abscess, left thigh: Wound culture growing MSSA. Blood cultures are pending. Appreciate infectious disease recommendations. Continue antibiotics. Drainage catheter in place, continues to drain. Management per orthopedic surgery. 2. Diabetes mellitus: Monitor Accu-Cheks and cover with sliding scale insulin. Continue Levemir. Diabetic diet. Hemoglobin A1c is 12.7. The patient states that he is willing to do whatever he needs to to get the sugars under control. He declines the offer of senior health educator consult. Glucose improving, but still elevated. 3. DVT prophylaxis: SCDs, ALEX hua. Problem Qualifiers (1) Diabetes mellitus: Pedro Luis Mcmahon MD Dec 14, 2016 10:00
[2016-12-14 12:03] VITALS: BP 167/75; PULSE 79; RESP 18; TEMP 98.3; O2SAT 97
[2016-12-14 16:12] VITALS: BP 162/79; PULSE 78; RESP 18; TEMP 98.1; O2SAT 94
[2016-12-14 20:00] VITALS: BP 188/82; PULSE 89; RESP 20; TEMP 98.2; O2SAT 93
[2016-12-15] VITALS: BP 170/79; PULSE 90; RESP 20; TEMP 97.8; O2SAT 98
[2016-12-15 04:00] VITALS: BP 183/88; PULSE 91; RESP 20; TEMP 98.1; O2SAT 94
[2016-12-15] MEDS: ACETAMINOPHEN/HYDROcodone 325 MG/10 MG TAB PO PRN ×4 (04:09→20:43)
[2016-12-15] MEDS: ceFAZolin 2 GM PREMIX 50 ML IV SCH ×3 (05:07→20:42)
[2016-12-15] MEDS: INSULIN ASPART SUPPLEMENTAL SCALE SQ SCH ×4 (05:57→20:42)
--- NOTE | 2016-12-15 07:09 | PD.ORT.PN ---
Subjective Subjective Remarks Continued decreased L thigh pain No sob,no chest pain patient has not been out of bed for ambulation Objective Vitals Vital Signs Date Time Temp Pulse Resp B/P Pulse Ox O2 Delivery O2 Flow Rate FiO2 12/15/16 04:00 98.1 91 20 183/88 94 12/15/16 00:00 97.8 90 20 170/79 98 12/14/16 20:15 Room Air 12/14/16 20:00 98.2 89 20 188/82 93 12/14/16 16:12 98.1 78 18 162/79 94 12/14/16 12:03 98.3 79 18 167/75 97 12/14/16 08:14 97.8 79 18 153/78 97 12/14/16 08:00 Room Air I/O 12/14/16 12/14/16 12/14/16 12/15/16 12/15/16 12/15/16 07:00 15:00 23:00 07:00 15:00 23:00 Intake Total 500 ml 600 ml 320 ml Output Total 1310 ml 1200 ml Balance 500 ml -710 ml -880 ml Intake Oral 500 ml 600 ml 320 ml Output Urine Total 1200 ml 1200 ml Drainage Total 110 ml # Voids 3 # Bowel Movements 0 0 0 Result Diagram: 12/12/16 0702 12/11/16 1500 Objective Remarks No L knee pain,swelling L thigh swelling improved, pig tail catheter left thigh erythema improving, less tender +NVI neg homans sign, no calf tenderness Assessment & Plan Assessment and Plan L thigh abscess;h/o diabetes cultures from L thigh aspiration;+ Staph,MSSA blood cultures - NGTD Patient responding well to current treatment Continue drainage left thigh abscess by catheter CT scan left thigh today PT-WBAT LLE, out of bed with assistive ambulation [facility] Vicente Mcmanus MD Dec 15, 2016 07:09
[2016-12-15 08:00] VITALS: BP 177/88; PULSE 91; RESP 18; TEMP 98.3; O2SAT 96
[2016-12-15] MEDS: LACTATED RINGER'S 1000 ML INJ 1,000 ML IV SCH ×2 (08:05→16:11)
[2016-12-15] MEDS: SODIUM CHLORIDE FLUSH BID IVF SCH ×2 (08:05→20:42)
[2016-12-15 08:43] LABS: AUTOMATED NEUTROPHIL # 6.3 TH/MM3 (1.8-7.7); BASOPHIL # 0.1 TH/MM3 (0-0.2); BASOPHIL % 0.6 % (0.0-2.0); EOSINOPHIL # 0.1 TH/MM3 (0-0.4); EOSINOPHIL % 1.2 % (0.0-4.0); HEMATOCRIT 33.6 % (39.0-51.0); HEMO FLAGS DIFF FINAL; LYMPH % 17.4 % (9.0-44.0); LYMPHOCYTE # 1.6 TH/MM3 (1.0-4.8); MEAN CORPUSCULAR HEMOGLOBIN 30.3 PG (27.0-34.0); MEAN CORPUSCULAR HGB CONC 34.5 % (32.0-36.0); MONO % 12.5 % (0.0-8.0); NEUT % 68.3 % (16.0-70.0); PLATELET COUNT 426 TH/MM3 (150-450); RED BLOOD COUNT 3.81 MIL/MM3 (4.50-5.90); RED CELL DISTRIBUTION WIDTH 12.7 % (11.6-17.2); WHITE BLOOD COUNT 9.2 TH/MM3 (4.0-11.0)
[2016-12-15 09:02] LABS: BICARBONATE 29.5 MEQ/L (21.0-32.0); POTASSIUM 3.9 MEQ/L (3.5-5.1)
[2016-12-15] MEDS: INSULIN DETEMIR 100 UNITS/ML VIAL SQ SCH (09:11)
--- NOTE | 2016-12-15 10:21 | HHI.PR ---
Subjective Remarks Follow up cellulitis/abscess, diabetes. The patient reports significant pain in the left thigh. He states that as soon as he returned from CT, physical therapy trying to get him up to walk. This is the first time he has tried ambulate in the last few days. The pain was so severe that he could not ambulate with physical therapy. Objective Vitals Vital Signs Date Time Temp Pulse Resp B/P Pulse Ox O2 Delivery O2 Flow Rate FiO2 12/15/16 08:00 Room Air 12/15/16 04:00 98.1 91 20 183/88 94 12/15/16 00:00 97.8 90 20 170/79 98 12/14/16 20:15 Room Air 12/14/16 20:00 98.2 89 20 188/82 93 12/14/16 16:12 98.1 78 18 162/79 94 12/14/16 12:03 98.3 79 18 167/75 97 I/O 12/14/16 12/14/16 12/14/16 12/15/16 12/15/16 12/15/16 07:00 15:00 23:00 07:00 15:00 23:00 Intake Total 500 ml 600 ml 320 ml Output Total 1310 ml 1200 ml Balance 500 ml -710 ml -880 ml Intake Oral 500 ml 600 ml 320 ml Output Urine Total 1200 ml 1200 ml Drainage Total 110 ml # Voids 3 # Bowel Movements 0 0 0 Result Diagram: 12/15/16 0804 12/15/16 0804 Imaging Last Impressions Abscess Drainage X-Ray 12/10/16 0000 Signed Impressions: Service Date/Time: Saturday, December 10, 2016 18:05 - CONCLUSION: 1. Uncomplicated catheter placement for left thigh abscess. 2. There may be multiple components. The more superficial fluid collection along the myofascial border was accessed and drained. I do not believe patient could tolerate deeper drainage in his current clinical condition. 3. After a few days of percutaneous drainage, would recommend repeat imaging of the left thigh with either ultrasound or CT for further characterization. If loculated collections persist , patient may need additional drainage catheters. Gino Bennett MD Objective Remarks General: No acute distress. Patient appears quite uncomfortable. Heart: Regular rate and rhythm. No murmur. Lungs: Clear to auscultation bilaterally. No wheezes, rales, or rhonchi. Breathing is nonlabored. Abdomen: Soft, nontender, nondistended. Extremities: Left thigh swelling and tenderness continue to improve. Drain in place. There is less erythema surrounding the drain. Psych: Alert and oriented. Procedures 12/10/16 ultrasound-guided drainage of abscess, left thigh Urinary Catheter: No Vascular Central Line Catheter: No A/P Problem List: (1) Cellulitis and abscess of leg ICD Code: L02.419 Status: Acute (2) Diabetes mellitus ICD Code: E11.9 Status: Acute Assessment and Plan 1. Abscess, left thigh: Wound culture growing MSSA. Blood cultures are pending. Appreciate infectious disease recommendations. Continue antibiotics. Drainage catheter in place, continues to drain. Management per orthopedic surgery. CT shows some improvement. 2. Diabetes mellitus: Monitor Accu-Cheks and cover with sliding scale insulin. Diabetic diet. Hemoglobin A1c is 12.7. child support specialist consult. Glucose still elevated. Increase Levemir. 3. DVT prophylaxis: ALEX Jordan. Problem Qualifiers (1) Diabetes mellitus: Pedro Luis Mcmahon MD Dec 15, 2016 10:21
--- NOTE | 2016-12-15 10:43 | RADRPT ---
EXAM DATE/TIME: 12/15/2016 09:46 [facility] COMPARISON: ABCESS DRAINAGE, December 10, 2016, 18:05. INDICATIONS : Evaluate for left thigh abscess s/p catheter drainage. RADIATION DOSE: 12.58 CTDIvol (mGy) MEDICAL HISTORY : Diabetes mellitus type 2. SURGICAL HISTORY : None. ENCOUNTER: Initial ACUITY: 4 - 6 days PAIN SCALE: 7/10 LOCATION: Left thigh TECHNIQUE: Volumetric scanning of the femur was performed. Using automated exposure control and adjustment of t he mA and/or kV according to patient size, radiation dose was kept as low as reasonably achievable to obtain optimal diagnostic quality images. FINDINGS: There is an abscess drainage catheter seen involving the anterior thigh. This is within a collection tracking just superficial to the quadriceps muscles. The fluid collection is largely decompressed. Ti ny foci of air and small volume of fluid remains within the collection. The collection is to 3 mm in thickness through the majority of its course. The thickest component of fluid is just under 1 cm and this is superficial to the vastus medialis and quadriceps tendon. The entire craniocaudal dimension o f the collection is 16.9 cm. I have no prior examinations for comparison and therefore cannot attest for any change in the size of this collection. The drainage catheter appears in appropriate position within the collection for adequate drainage. A small joint effusion is noted. No changes within the f emur to suggest osteomyelitis. Atherosclerotic changes seen within the superficial femoral artery. Ed keisha is seen throughout the subcutaneous tissues of the thigh. CONCLUSION: 1. The drainage catheter is appropriately positioned within the fluid collection. A very small volume of fluid remains within the collection as detailed above. No CT evidence to suggest osteomyelitis. Leo Rocha Jr., MD on December 15, 2016 at 10:29 Board Certified Radiologist. This report was verified electronically.
[2016-12-15] MEDS: MORPHINE SULFATE 4 MG/ML INJ IV PRN (11:04)
[2016-12-15 12:00] VITALS: BP 176/83; PULSE 87; RESP 18; TEMP 98; O2SAT 91
[2016-12-15 16:00] VITALS: BP 150/72; PULSE 87; RESP 18; TEMP 98.1; O2SAT 97
--- NOTE | 2016-12-15 16:28 | HHI.IDPN ---
Subjective Subjective Remarks Notes reviewed Temps okay Still with significant pain in the left thigh, but moving more Fluid culture with MSSA Sedimentation rate 37 CRP 20 Blood cultures negative WBC down to 9.2 Antibiotics Cefazolin Lines PIV Past Medical History Reviewed Allergies: Coded Allergies: No Known Allergies (Unverified , 12/10/16) Objective . Vital Signs Date Time Temp Pulse Resp B/P Pulse Ox O2 Delivery O2 Flow Rate FiO2 12/15/16 12:00 98.0 87 18 176/83 91 12/15/16 08:00 98.3 91 18 177/88 96 12/15/16 08:00 Room Air 12/15/16 04:00 98.1 91 20 183/88 94 12/15/16 00:00 97.8 90 20 170/79 98 12/14/16 20:15 Room Air 12/14/16 20:00 98.2 89 20 188/82 93 12/14/16 12/14/16 12/15/16 15:00 23:00 07:00 Intake Total 600 ml 320 ml Output Total 1310 ml 1200 ml Balance -710 ml -880 ml Intake Oral 600 ml 320 ml Output Urine Total 1200 ml 1200 ml Drainage Total 110 ml # Bowel Movements 0 0 . Laboratory Tests Test 12/15/16 08:04 White Blood Count 9.2 TH/MM3 Red Blood Count 3.81 MIL/MM3 Hemoglobin 11.6 GM/DL Hematocrit 33.6 % Mean Corpuscular Volume 88.0 FL Mean Corpuscular Hemoglobin 30.3 PG Mean Corpuscular Hemoglobin 34.5 % Concent Red Cell Distribution Width 12.7 % Platelet Count 426 TH/MM3 Mean Platelet Volume 7.2 FL Neutrophils (%) (Auto) 68.3 % Lymphocytes (%) (Auto) 17.4 % Monocytes (%) (Auto) 12.5 % Eosinophils (%) (Auto) 1.2 % Basophils (%) (Auto) 0.6 % Neutrophils # (Auto) 6.3 TH/MM3 Lymphocytes # (Auto) 1.6 TH/MM3 Monocytes # (Auto) 1.2 TH/MM3 Eosinophils # (Auto) 0.1 TH/MM3 Basophils # (Auto) 0.1 TH/MM3 CBC Comment DIFF FINAL Differential Comment Laboratory Tests Test 12/15/16 08:04 Sodium Level 135 MEQ/L Potassium Level 3.9 MEQ/L Chloride Level 98 MEQ/L Carbon Dioxide Level 29.5 MEQ/L Anion Gap 8 MEQ/L Blood Urea Nitrogen 11 MG/DL Creatinine 0.69 MG/DL Estimat Glomerular Filtration 115 ML/MIN Rate Random Glucose 214 MG/DL Calcium Level 8.1 MG/DL Imaging Lower Extremity CT 12/15/16 0000 Signed Impressions: Service Date/Time: Thursday, December 15, 2016 09:46 - CONCLUSION: 1. The drainage catheter is appropriately positioned within the fluid collection. A very small volume of fluid remains within the collection as detailed above. No CT evidence to suggest osteomyelitis. Leo Rocha Jr., MD Abscess Drainage X-Ray 12/10/16 0000 Signed Impressions: Service Date/Time: Saturday, December 10, 2016 18:05 - CONCLUSION: 1. Uncomplicated catheter placement for left thigh abscess. 2. There may be multiple components. The more superficial fluid collection along the myofascial border was accessed and drained. I do not believe patient could tolerate deeper drainage in his current clinical condition. 3. After a few days of percutaneous drainage, would recommend repeat imaging of the left thigh with either ultrasound or CT for further characterization. If loculated collections persist , patient may need additional drainage catheters. Gino Bennett MD Physical Exam GENERAL: awake and alert, NAD SKIN: Cool and dry. No generalized rash, ecchymosis or embolic lesions. HEENT: [place] conjunctivae. No scleral icterus. No injection or drainage. Moist oral mucosa. NECK: Supple, nontender, no meningeal signs. CARDIOVASCULAR: Regular rate and rhythm without murmurs, gallops, or rubs. RESPIRATORY: Clear to auscultation. Breath sounds equal bilaterally. No wheezes , rales, or rhonchi. GASTROINTESTINAL: Abdomen soft, non-tender, nondistended. Bowel sounds are present and normoactive. No hepato-splenomegaly, or palpable masses. No guarding. MUSCULOSKELETAL: Extremities without clubbing, cyanosis, or edema in RLE. LLE - area of redness and intensity of redness is better. INdurated and tender. Has percutaneous drain with milky martinez drainage. NEUROLOGICAL: Grossly nonfocal PSYCH: Calm and cooperative LINE: PIV with no evidence of infection Assessment & Plan Remarks IMPRESSION Infected hematoma, L thigh, abscess - Has percutaneous drain placed, culture with MSSA Likely with diabetes RECOMMENDATION Continue IV Ancef Monitor progress Continue with drain Explained plan to the patient and Lisha Mcclendon MD Dec 15, 2016 16:28
[2016-12-15 20:00] VITALS: BP 172/80; PULSE 85; RESP 18; TEMP 98.1; O2SAT 95
[2016-12-15] MEDS ORDERED: INSULIN DETEMIR 100 UNITS/ML VIAL SQ SCH ×2 (21:00)
[2016-12-16] VITALS: BP 139/81; PULSE 86; RESP 17; TEMP 98; O2SAT 96
[2016-12-16] MEDS: LACTATED RINGER'S 1000 ML INJ 1,000 ML IV SCH ×2 (03:25→14:45)
[2016-12-16 04:00] VITALS: BP 157/80; PULSE 89; RESP 17; TEMP 98.2; O2SAT 95
[2016-12-16] MEDS: ceFAZolin 2 GM PREMIX 50 ML IV SCH ×3 (05:01→21:57)
[2016-12-16] MEDS: INSULIN ASPART SUPPLEMENTAL SCALE SQ SCH ×4 (05:43→21:45)
--- NOTE | 2016-12-16 06:59 | PD.ORT.PN ---
Subjective Subjective Remarks Patient had increased L thigh pain yesterday with increased physical activities. No sob,no chest pain Objective Vitals Vital Signs Date Time Temp Pulse Resp B/P Pulse Ox O2 Delivery O2 Flow Rate FiO2 12/16/16 04:00 98.2 89 17 157/80 95 12/16/16 00:00 98.0 86 17 139/81 96 12/15/16 20:00 Room Air 12/15/16 20:00 98.1 85 18 172/80 95 12/15/16 16:00 98.1 87 18 150/72 97 12/15/16 12:00 98.0 87 18 176/83 91 12/15/16 08:00 98.3 91 18 177/88 96 12/15/16 08:00 Room Air I/O 12/15/16 12/15/16 12/15/16 12/16/16 12/16/16 12/16/16 07:00 15:00 23:00 07:00 15:00 23:00 Intake Total 320 ml 4472 ml 1186 ml 827 ml Output Total 1200 ml 500 ml 100 ml Balance -880 ml 3972 ml 1186 ml 727 ml Intake Oral 320 ml 0 ml 600 ml IV Total 4472 ml 586 ml 827 ml Output Urine Total 1200 ml 500 ml Drainage Total 100 ml # Voids 6 # Bowel Movements 0 1 Result Diagram: 12/15/16 0804 12/15/16 0804 Objective Remarks No L knee pain,swelling L thigh swelling improved, pig tail catheter left thigh erythema improving, less tender +NVI neg homans sign, no calf tenderness Assessment & Plan Assessment and Plan L thigh abscess;h/o diabetes Cultures from L thigh aspiration;+ Staph,MSSA Blood cultures - Neg Patient responding well to current treatment Continue drainage left thigh abscess by catheter CT scan left thigh shows significant improvement PT-WBAT LLE, out of bed with assistive ambulation Discharge home with [facility] in possible 2-3 days Ortho stable Vicente Mcmanus MD Dec 16, 2016 06:59
[2016-12-16] MEDS: ACETAMINOPHEN/HYDROcodone 325 MG/10 MG TAB PO PRN ×3 (07:09→21:43)
[2016-12-16 08:00] VITALS: BP 140/81; PULSE 87; RESP 20; TEMP 97.8; O2SAT 95
[2016-12-16] MEDS: SODIUM CHLORIDE FLUSH BID IVF SCH ×2 (08:42→21:52)
--- NOTE | 2016-12-16 10:35 | HHI.PR ---
Subjective Remarks Follow up thigh abscess, diabetes. Patient reports decreasing pain and swelling in the left thigh. Able to ambulate with less pain today. Objective Vitals Vital Signs Date Time Temp Pulse Resp B/P Pulse Ox O2 Delivery O2 Flow Rate FiO2 12/16/16 08:00 97.8 87 20 140/81 95 12/16/16 04:00 98.2 89 17 157/80 95 12/16/16 00:00 98.0 86 17 139/81 96 12/15/16 20:00 Room Air 12/15/16 20:00 98.1 85 18 172/80 95 12/15/16 16:00 98.1 87 18 150/72 97 12/15/16 12:00 98.0 87 18 176/83 91 I/O 12/15/16 12/15/16 12/15/16 12/16/16 12/16/16 12/16/16 07:00 15:00 23:00 07:00 15:00 23:00 Intake Total 320 ml 4472 ml 1186 ml 827 ml Output Total 1200 ml 500 ml 100 ml Balance -880 ml 3972 ml 1186 ml 727 ml Intake Oral 320 ml 0 ml 600 ml IV Total 4472 ml 586 ml 827 ml Output Urine Total 1200 ml 500 ml Drainage Total 100 ml # Voids 6 1 # Bowel Movements 0 1 Result Diagram: 12/15/16 0804 12/15/16 0804 Imaging Last Impressions Lower Extremity CT 12/15/16 0000 Signed Impressions: Service Date/Time: Thursday, December 15, 2016 09:46 - CONCLUSION: 1. The drainage catheter is appropriately positioned within the fluid collection. A very small volume of fluid remains within the collection as detailed above. No CT evidence to suggest osteomyelitis. Leo Rocha Jr., MD Abscess Drainage X-Ray 12/10/16 0000 Signed Impressions: Service Date/Time: Saturday, December 10, 2016 18:05 - CONCLUSION: 1. Uncomplicated catheter placement for left thigh abscess. 2. There may be multiple components. The more superficial fluid collection along the myofascial border was accessed and drained. I do not believe patient could tolerate deeper drainage in his current clinical condition. 3. After a few days of percutaneous drainage, would recommend repeat imaging of the left thigh with either ultrasound or CT for further characterization. If loculated collections persist , patient may need additional drainage catheters. Gino Bennett MD Objective Remarks General: No acute distress. Resting comfortably. Heart: Regular rate and rhythm. No murmur. Lungs: Clear to auscultation bilaterally. No wheezes, rales, or rhonchi. Breathing is nonlabored. Abdomen: Soft, nontender, nondistended. Extremities: Left thigh swelling and tenderness continue to improve. Drain in place. There is less erythema surrounding the drain. Psych: Alert and oriented. Procedures 12/10/16 ultrasound-guided drainage of abscess, left thigh Urinary Catheter: No Vascular Central Line Catheter: No A/P Problem List: (1) Cellulitis and abscess of leg ICD Code: L02.419 Status: Acute (2) Diabetes mellitus ICD Code: E11.9 Status: Acute Assessment and Plan 1. Abscess, left thigh: Wound culture growing MSSA. Blood cultures are negative so far. Appreciate infectious disease recommendations. Continue antibiotics. Drainage catheter in place, continues to drain. Management per orthopedic surgery. CT shows some improvement. 2. Diabetes mellitus: Monitor Accu-Cheks and cover with sliding scale insulin. Diabetic diet. Hemoglobin A1c is 12.7. adaptive physical educator consult. Glucose still elevated. Increase Levemir. 3. DVT prophylaxis: SCDs, ALEX hua. Problem Qualifiers (1) Diabetes mellitus: Pedro Luis Mcmahon MD Dec 16, 2016 10:35
[2016-12-16 12:00] VITALS: BP 173/79; PULSE 89; RESP 20; TEMP 97.9; O2SAT 95
[2016-12-16] MEDS: DOCUSATE SODIUM 100 MG CAP PO SCH ×2 (15:23→21:42)
[2016-12-16 16:00] VITALS: BP 189/86; PULSE 93; RESP 20; TEMP 98.5; O2SAT 95
[2016-12-16] MEDS ORDERED: SOD PHOSPHATE/SOD BIPHOSPHATE (ADULT) ENEMA 133ML PR ONE (16:00)
[2016-12-16 20:34] VITALS: BP 171/77; PULSE 96; RESP 16; TEMP 96.4; O2SAT 90
[2016-12-16] MEDS ORDERED: INSULIN DETEMIR 100 UNITS/ML VIAL SQ SCH (21:00)
[2016-12-17] VITALS (8 sets, daily range): BP systolic 129–177; BP diastolic 67–89; PULSE 77–86; RESP 16–20; TEMP 97.6–98.6; O2SAT 95–98
[2016-12-17] MEDS: LACTATED RINGER'S 1000 ML INJ 1,000 ML IV SCH ×2 (00:38→10:06)
[2016-12-17] MEDS: ACETAMINOPHEN/HYDROcodone 325 MG/10 MG TAB PO PRN ×4 (05:10→20:23)
[2016-12-17] MEDS: ceFAZolin 2 GM PREMIX 50 ML IV SCH ×3 (06:00→22:22)
[2016-12-17] MEDS: INSULIN ASPART SUPPLEMENTAL SCALE SQ SCH ×4 (06:57→20:24)
--- NOTE | 2016-12-17 07:39 | PD.ORT.PN ---
Subjective Subjective Remarks pt states he still has significant left thigh pain with ambulation, unable to put full weight on leg Objective Vitals Vital Signs Date Time Temp Pulse Resp B/P Pulse Ox O2 Delivery O2 Flow Rate FiO2 12/17/16 04:00 98.1 82 18 129/83 95 12/17/16 00:00 97.6 85 18 143/67 98 12/16/16 21:11 Room Air 12/16/16 20:34 96.4 96 16 171/77 90 12/16/16 16:00 98.5 93 20 189/86 95 12/16/16 12:00 97.9 89 20 173/79 95 12/16/16 08:00 Room Air 12/16/16 08:00 97.8 87 20 140/81 95 I/O 12/16/16 12/16/16 12/16/16 12/17/16 12/17/16 12/17/16 07:00 15:00 23:00 07:00 15:00 23:00 Intake Total 827 ml 600 ml 240 ml 480 ml Output Total 100 ml 800 ml 890 ml 600 ml Balance 727 ml -200 ml -650 ml -120 ml Intake Oral 600 ml 240 ml 480 ml IV Total 827 ml Output Urine Total 800 ml 750 ml 600 ml Drainage Total 100 ml 140 ml # Voids 1 2 # Bowel Movements 1 0 0 Result Diagram: 12/15/16 0804 12/15/16 0804 Objective Remarks No L knee pain,swelling L thigh swelling improved, pig tail catheter left thigh erythema resolved no pain with passive motion of foot +NVI neg homans sign, no calf tenderness Assessment & Plan Assessment and Plan L thigh abscess;h/o diabetes Cultures from L thigh aspiration;+ Staph,MSSA Blood cultures - Neg Patient responding well to current treatment Continue drainage left thigh abscess by catheter CT scan left thigh shows significant improvement PT-WBAT LLE, out of bed with assistive ambulation Discharge home with c in 1-2 days Ortho stable Rebekah Dudley Dec 17, 2016 07:39
[2016-12-17] MEDS: SODIUM CHLORIDE FLUSH BID IVF SCH ×2 (09:00→20:23)
[2016-12-17] MEDS: DOCUSATE SODIUM 100 MG CAP PO SCH ×2 (10:05→20:23)
--- NOTE | 2016-12-17 10:54 | HHI.IDPN ---
Subjective Subjective Remarks Notes reviewed Temps okay Draining a lot from percutaneous cath Pain still present but improving Not able to put much weight on LLE, not bending L knee joint No diarrhea No rash Fluid culture with MSSA Sedimentation rate 37 CRP 20 Blood cultures negative WBC down to normal Antibiotics Cefazolin Lines PIV Past Medical History Reviewed Allergies: Coded Allergies: No Known Allergies (Unverified , 12/10/16) Objective . Vital Signs Date Time Temp Pulse Resp B/P Pulse Ox O2 Delivery O2 Flow Rate FiO2 12/17/16 08:04 98.1 77 20 177/87 96 12/17/16 04:00 98.1 82 18 129/83 95 12/17/16 00:00 97.6 85 18 143/67 98 12/16/16 21:11 Room Air 12/16/16 20:34 96.4 96 16 171/77 90 12/16/16 16:00 98.5 93 20 189/86 95 12/16/16 12:00 97.9 89 20 173/79 95 12/16/16 12/16/16 12/17/16 15:00 23:00 07:00 Intake Total 600 ml 240 ml 480 ml Output Total 800 ml 890 ml 600 ml Balance -200 ml -650 ml -120 ml Intake Oral 600 ml 240 ml 480 ml Output Urine Total 800 ml 750 ml 600 ml Drainage Total 140 ml # Voids 2 # Bowel Movements 1 0 [address] 12/15/16 0000 Signed Impressions: Service Date/Time: Thursday, December 15, 2016 09:46 - CONCLUSION: 1. The drainage catheter is appropriately positioned within the fluid collection. A very small volume of fluid remains within the collection as detailed above. No CT evidence to suggest osteomyelitis. Leo Rocha Jr., MD Abscess Drainage X-Ray 12/10/16 0000 Signed Impressions: Service Date/Time: Saturday, December 10, 2016 18:05 - CONCLUSION: 1. Uncomplicated catheter placement for left thigh abscess. 2. There may be multiple components. The more superficial fluid collection along the myofascial border was accessed and drained. I do not believe patient could tolerate deeper drainage in his current clinical condition. 3. After a few days of percutaneous drainage, would recommend repeat imaging of the left thigh with either ultrasound or CT for further characterization. If loculated collections persist , patient may need additional drainage catheters. Gino Bennett MD Physical Exam GENERAL: awake and alert, NAD SKIN: Cool and dry. No generalized rash, ecchymosis or embolic lesions. HEENT: [place] conjunctivae. No scleral icterus. No injection or drainage. Moist oral mucosa. NECK: Supple, nontender, no meningeal signs. CARDIOVASCULAR: Regular rate and rhythm without murmurs, gallops, or rubs. RESPIRATORY: Clear to auscultation. Breath sounds equal bilaterally. No wheezes , rales, or rhonchi. GASTROINTESTINAL: Abdomen soft, non-tender, nondistended. Bowel sounds are present and normoactive. No hepato-splenomegaly, or palpable masses. No guarding. MUSCULOSKELETAL: Extremities without clubbing, cyanosis, or edema in RLE. LLE - area of redness and intensity of redness isbetter. Induration and swelling L thigh better. Drain in place, martinez drainage. NEUROLOGICAL: Grossly nonfocal PSYCH: Calm and cooperative LINE: PIV with no evidence of infection Assessment & Plan Remarks IMPRESSION Infected hematoma, L thigh, abscess - Has percutaneous drain placed, culture with MSSA Likely with diabetes RECOMMENDATION Continue IV Ancef Monitor progress Continue with drain - need to leave drain since it is still draining a lot Explained plan to the patient Lisha Mcclendon MD Dec 17, 2016 10:54
--- NOTE | 2016-12-17 11:26 | HHI.PR ---
Subjective Remarks Follow up abscess, diabetes. Patient feels that the leg infection continues to improve. Still painful, especially with bearing weight on the left leg. Objective Vitals Vital Signs Date Time Temp Pulse Resp B/P Pulse Ox O2 Delivery O2 Flow Rate FiO2 12/17/16 08:04 98.1 77 20 177/87 96 12/17/16 04:00 98.1 82 18 129/83 95 12/17/16 00:00 97.6 85 18 143/67 98 12/16/16 21:11 Room Air 12/16/16 20:34 96.4 96 16 171/77 90 12/16/16 16:00 98.5 93 20 189/86 95 12/16/16 12:00 97.9 89 20 173/79 95 I/O 12/16/16 12/16/16 12/16/16 12/17/16 12/17/16 12/17/16 07:00 15:00 23:00 07:00 15:00 23:00 Intake Total 827 ml 600 ml 240 ml 480 ml Output Total 100 ml 800 ml 890 ml 600 ml Balance 727 ml -200 ml -650 ml -120 ml Intake Oral 600 ml 240 ml 480 ml IV Total 827 ml Output Urine Total 800 ml 750 ml 600 ml Drainage Total 100 ml 140 ml # Voids 1 2 # Bowel Movements 1 0 0 Result Diagram: 12/15/16 0804 12/15/16 0804 Imaging Last Impressions Lower Extremity CT 12/15/16 0000 Signed Impressions: Service Date/Time: Thursday, December 15, 2016 09:46 - CONCLUSION: 1. The drainage catheter is appropriately positioned within the fluid collection. A very small volume of fluid remains within the collection as detailed above. No CT evidence to suggest osteomyelitis. Leo Rocha Jr., MD Abscess Drainage X-Ray 12/10/16 0000 Signed Impressions: Service Date/Time: Saturday, December 10, 2016 18:05 - CONCLUSION: 1. Uncomplicated catheter placement for left thigh abscess. 2. There may be multiple components. The more superficial fluid collection along the myofascial border was accessed and drained. I do not believe patient could tolerate deeper drainage in his current clinical condition. 3. After a few days of percutaneous drainage, would recommend repeat imaging of the left thigh with either ultrasound or CT for further characterization. If loculated collections persist , patient may need additional drainage catheters. Gino Bennett MD Objective Remarks General: No acute distress. Resting comfortably. Heart: Regular rate and rhythm. No murmur. Lungs: Clear to auscultation bilaterally. No wheezes, rales, or rhonchi. Breathing is nonlabored. Abdomen: Soft, nontender, nondistended. Extremities: Left thigh swelling and tenderness continue to improve. Drain in place. There is less erythema surrounding the drain. Psych: Alert and oriented. Procedures 12/10/16 ultrasound-guided drainage of abscess, left thigh Urinary Catheter: No Vascular Central Line Catheter: No A/P Problem List: (1) Cellulitis and abscess of leg ICD Code: L02.419 Status: Acute (2) Diabetes mellitus ICD Code: E11.9 Status: Acute Assessment and Plan 1. Abscess, left thigh: Wound culture growing MSSA. Blood cultures are negative so far. Appreciate infectious disease recommendations. Continue antibiotics. Drainage catheter in place, continues to drain. Management per orthopedic surgery. CT shows some improvement. 2. Diabetes mellitus: Monitor Accu-Cheks and cover with sliding scale insulin. Diabetic diet. Hemoglobin A1c is 12.7. skein inspector consult. Glucose improving, but still elevated. Increase Levemir. 3. DVT prophylaxis: ALEX Jordan. Problem Qualifiers (1) Diabetes mellitus: Pedro Luis Mcmahon MD Dec 17, 2016 11:26
[2016-12-17] MEDS: INSULIN DETEMIR 100 UNITS/ML VIAL SQ SCH (20:25)
[2016-12-17] MEDS: MORPHINE SULFATE 4 MG/ML INJ IV PRN (22:27)
[2016-12-18] MEDS: LACTATED RINGER'S 1000 ML INJ 1,000 ML IV SCH ×2 (01:45→13:41)
[2016-12-18 03:55] VITALS: BP 174/82; PULSE 80; RESP 16; TEMP 98.1; O2SAT 93
[2016-12-18] MEDS: ceFAZolin 2 GM PREMIX 50 ML IV SCH ×3 (06:00→22:37)
[2016-12-18] MEDS: INSULIN ASPART SUPPLEMENTAL SCALE SQ SCH ×4 (06:49→22:37)
[2016-12-18] MEDS: DOCUSATE SODIUM 100 MG CAP PO SCH ×2 (07:58→22:38)
[2016-12-18] MEDS: ACETAMINOPHEN/HYDROcodone 325 MG/10 MG TAB PO PRN ×3 (07:58→22:43)
[2016-12-18] MEDS: SODIUM CHLORIDE FLUSH BID IVF SCH ×2 (08:00→22:38)
[2016-12-18 08:05] VITALS: BP 160/77; PULSE 80; RESP 20; TEMP 98.3; O2SAT 94
[2016-12-18] MEDS ORDERED: GENTAMICIN SULFATE 80 MG/2 ML VIAL ONE (08:45)
[2016-12-18] MEDS ORDERED: MIDAZOLAM HCL 2 MG/2 ML VIAL ONE (09:13)
[2016-12-18] MEDS ORDERED: FAMOTIDINE 20 MG/2 ML VIAL ONE (09:13)
[2016-12-18] MEDS ORDERED: DEXAMETHASONE SOD PHOS 4 MG/ML VIAL ONE (09:13)
[2016-12-18] MEDS ORDERED: METOCLOPRAMIDE HCL 10 MG/2 ML VIAL ONE (09:14)
[2016-12-18 10:05] VITALS: BP 149/74; PULSE 77; RESP 20; TEMP 98.3; O2SAT 98
--- NOTE | 2016-12-18 11:42 | HHI.PR ---
Immediate Post Op Note Procedure Date: Dec 18, 2016 Pre Op Diagnosis: L Femur abscess Post Op Diagnosis: Same Surgeon: Vicente Mcmanus MD Associate Director Of Nursing(s): Rebekah Dudley PA-C Procedure: L Femur I&D Abscess;Application of wound vac Complications: None Specimen(s) removed: Micro for A&A C&S,Fungal smear and culture Estimated blood loss: Minimal Anesthesia: General Drains: Other Patient to: PACU Patient Condition: Good Implant/Devices: SEE IMPLANT LOG (if applicable) Date/Time of Procedure: SEE SURGICAL CARE RECORD Vicente Mcmanus MD Dec 18, 2016 11:42
[2016-12-18] MEDS ORDERED: WALKER WHEELS/F1 MIS (11:46)
[2016-12-18] MEDS ORDERED: PROPOFOL 200 MG/20 ML AMP IV ONE (12:00)
[2016-12-18] MEDS ORDERED: ONDANSETRON HCL 4 MG/2 ML VIAL IV PUSH ONE (12:00)
[2016-12-18] MEDS ORDERED: *morphine SULFATE 8 MG/ML PERIprocedure ONLY ONE (12:01)
[2016-12-18] MEDS ORDERED: DO NOT ADM ANY ANTICOAGULANT DRUGS XX PRN (12:15)
[2016-12-18] MEDS ORDERED: fentaNYL CITRATE 250 MCG/5 ML AMP ONE ×2 (12:29)
[2016-12-18] MEDS: MORPHINE SULFATE 4 MG/ML INJ IV PRN (12:51)
--- NOTE | 2016-12-18 12:55 | HHI.IDPN ---
Subjective Subjective Remarks Notes reviewed Temps okay Just came back from OR had I and D, placement of wound vac C/O burning pain in his L thigh No diarrhea No rash Fluid culture with MSSA Sedimentation rate 37 CRP 20 Blood cultures negative WBC down to normal Antibiotics Cefazolin Lines PIV Past Medical History Reviewed Allergies: Coded Allergies: No Known Allergies (Unverified , 12/10/16) Objective . Vital Signs Date Time Temp Pulse Resp B/P Pulse Ox O2 Delivery O2 Flow Rate FiO2 12/18/16 12:15 72 16 155/85 97 Nasal Cannula 2 12/18/16 12:00 72 16 164/85 98 Nasal Cannula 2 12/18/16 11:45 76 16 163/89 98 Nasal Cannula 2 12/18/16 11:39 98.6 90 16 168/89 98 Nasal Cannula 2 12/18/16 08:05 98.3 80 20 160/77 94 12/18/16 03:55 98.1 80 16 174/82 93 12/17/16 23:10 98.3 83 16 146/84 96 12/17/16 20:28 Room Air 12/17/16 20:00 98.6 81 16 177/81 96 12/17/16 19:25 98.3 82 16 170/80 98 12/17/16 16:00 98.6 79 20 177/89 97 12/17/16 12/17/16 12/18/16 15:00 23:00 07:00 Intake Total 3746 ml 240 ml 0 ml Output Total 1600 ml 800 ml 875 ml Balance 2146 ml -560 ml -875 ml Intake Oral 720 ml 240 ml 0 ml IV Total 3026 ml Output Urine Total 1600 ml 800 ml 800 ml Drainage Total 75 ml # Bowel Movements 1 0 [address] 12/15/16 0000 Signed Impressions: Service Date/Time: Thursday, December 15, 2016 09:46 - CONCLUSION: 1. The drainage catheter is appropriately positioned within the fluid collection. A very small volume of fluid remains within the collection as detailed above. No CT evidence to suggest osteomyelitis. Leo Rocha Jr., MD Abscess Drainage X-Ray 12/10/16 0000 Signed Impressions: Service Date/Time: Saturday, December 10, 2016 18:05 - CONCLUSION: 1. Uncomplicated catheter placement for left thigh abscess. 2. There may be multiple components. The more superficial fluid collection along the myofascial border was accessed and drained. I do not believe patient could tolerate deeper drainage in his current clinical condition. 3. After a few days of percutaneous drainage, would recommend repeat imaging of the left thigh with either ultrasound or CT for further characterization. If loculated collections persist , patient may need additional drainage catheters. Gino Bennett MD Physical Exam GENERAL: awake and alert, NAD SKIN: Cool and dry. No generalized rash. HEENT: [place] conjunctivae. No scleral icterus. Moist mucosa NECK: Supple and non-tender CARDIOVASCULAR: Regular rate and rhythm without murmurs, gallops, or rubs. RESPIRATORY: Clear to auscultation. Breath sounds equal bilaterally. No wheezes , rales, or rhonchi. GASTROINTESTINAL: Abdomen soft, non-tender, nondistended. Bowel sounds are present and normoactive. No guarding. MUSCULOSKELETAL: Extremities without clubbing, cyanosis, or edema in RLE. LLE - has wound vac in place, redness almost gone, induration present but less NEUROLOGICAL: Grossly nonfocal PSYCH: Calm and cooperative LINE: PIV with no evidence of infection Assessment & Plan Remarks IMPRESSION Infected hematoma, L thigh, abscess - Has percutaneous drain placed, culture with MSSA - S/P I and D and wound vac 12/18 Likely with diabetes RECOMMENDATION Continue IV Ancef Monitor progress Follow new C/S Pain control Spoke with Lisha Mcclendon MD Dec 18, 2016 12:55
--- NOTE | 2016-12-18 13:40 | MP ---
cc: EVERETT MCMANUS M.D. DATE OF SURGERY December 18, 2016 PREOPERATIVE DIAGNOSES 1. Left thigh abscess. 2. Diabetes mellitus. POSTOPERATIVE DIAGNOSES 1. Left thigh abscess. 2. Diabetes mellitus. PROCEDURE Left thigh incision and drainage, irrigation and debridement of left thigh abscess; application of left thigh wound VAC. SURGEON Ronal Mcmanus MD ASSESSMENT Rebekah Dudley PA-C ANESTHESIA General. SPECIMENS Three specimens taken from the abscess that were sent for aerobic and anaerobic culture and sensitivity, fungal smear and cultures. ESTIMATED BLOOD LOSS Minimal. COMPLICATIONS None. PLAN OF ACTIVITY As per orders. PROCEDURE The patient was brought into the operating room and had satisfactory general anesthesia by Dr. Jason Chand of the Department of Anesthesia. The patient placed in the somewhat lateral decubitus position, appropriately covering all pressure points. The left thigh and lower extremity was all prepped and draped in the usual sterile manner. The previous pigtail catheter was removed, the patient found to have continued purulence. In this area, through here incision was carried longitudinally and laterally. The patient was found to have significant purulent material and abscess formation. The three separate specimens were taken and cultures were taken for Gram's stain, aerobic, anaerobic culture and sensitivities and then also for fungal smear and culture. The abscess then was inspected. It was then irrigated with 9000 cc of sterile saline antibiotic solution. The patient had complete freeing up of the abscess formation. A VAC was then assembled onto the wound with appropriate sealing of the VAC. Pressures was put on negative pressure, a total of 125 mmHg. The patient tolerated the procedure well and arrived in the recovery room in stable and satisfactory condition. MD BRYSON Lee/SSB /11:34 AM /1:21 PM
[2016-12-18 16:07] VITALS: BP 153/73; PULSE 77; RESP 20; TEMP 98.3; O2SAT 98
[2016-12-18 20:51] VITALS: BP 129/66; PULSE 89; RESP 16; TEMP 98.5; O2SAT 95
[2016-12-18] MEDS: INSULIN DETEMIR 100 UNITS/ML VIAL SQ SCH (22:38)
[2016-12-18 23:00] VITALS: BP 124/58; PULSE 80; RESP 16; TEMP 98.4; O2SAT 96
[2016-12-19] MEDS: LACTATED RINGER'S 1000 ML INJ 1,000 ML IV SCH ×2 (02:00→15:15)
[2016-12-19 04:38] VITALS: BP 133/62; PULSE 81; RESP 16; TEMP 98; O2SAT 96
[2016-12-19] MEDS: ceFAZolin 2 GM PREMIX 50 ML IV SCH ×3 (06:01→23:08)
[2016-12-19] MEDS: INSULIN ASPART SUPPLEMENTAL SCALE SQ SCH ×4 (06:10→23:07)
--- NOTE | 2016-12-19 07:20 | PD.ORT.PN ---
Subjective Subjective Remarks pt states he had significantly decreased left thigh pain since his I&D yesterday Objective Vitals Vital Signs Date Time Temp Pulse Resp B/P Pulse Ox O2 Delivery O2 Flow Rate FiO2 12/19/16 04:38 98.0 81 16 133/62 96 12/18/16 23:00 98.4 80 16 124/58 96 12/18/16 21:10 Room Air 12/18/16 20:51 98.5 89 16 129/66 95 12/18/16 16:07 98.3 77 20 153/73 98 12/18/16 12:15 72 16 155/85 97 Nasal Cannula 2 12/18/16 12:00 72 16 164/85 98 Nasal Cannula 2 12/18/16 11:45 76 16 163/89 98 Nasal Cannula 2 12/18/16 11:39 98.6 90 16 168/89 98 Nasal Cannula 2 12/18/16 10:05 98.3 77 20 149/74 98 12/18/16 08:05 98.3 80 20 160/77 94 12/18/16 08:00 Room Air I/O 12/18/16 12/18/16 12/18/16 12/19/16 12/19/16 12/19/16 07:00 15:00 23:00 07:00 15:00 23:00 Intake Total 0 ml 592 ml 650 ml 500 ml Output Total 875 ml 1400 ml 900 ml Balance -875 ml -808 ml 650 ml -400 ml Intake Oral 0 ml 240 ml 650 ml 500 ml IV Total 352 ml Output Urine Total 800 ml 1400 ml 900 ml Drainage Total 75 ml # Voids 1 4 # Bowel Movements 0 0 1 0 Result Diagram: 12/15/16 0804 12/15/16 0804 Objective Remarks seen by Dr. Vicente Mcmanus L thigh wound vac in place no pain with passive motion of foot +NVI neg homans sign, no calf tenderness Assessment & Plan Assessment and Plan POD # 1 s/p l thigh I&D with application of wound vac await new cultures taken yesterday Cultures from L thigh aspiration;+ Staph,MSSA Blood cultures - Neg PT-WBAT LLE, out of bed with assistive ambulation Discharge home thursday with [facility] if stable wound VAC change on thursday Rebekah Dudley Dec 19, 2016 07:20
[2016-12-19 07:50] LABS: AUTOMATED NEUTROPHIL # 4.1 TH/MM3 (1.8-7.7); BASOPHIL % 0.6 % (0.0-2.0); EOSINOPHIL # 0.1 TH/MM3 (0-0.4); HEMATOCRIT 29.1 % (39.0-51.0); HEMO FLAGS DIFF FINAL; LYMPH % 30.8 % (9.0-44.0); LYMPHOCYTE # 2.3 TH/MM3 (1.0-4.8); MEAN CELL VOLUME 88.6 FL (80.0-100.0); MEAN CORPUSCULAR HEMOGLOBIN 29.9 PG (27.0-34.0); MEAN CORPUSCULAR HGB CONC 33.7 % (32.0-36.0); MONO % 12.5 % (0.0-8.0); NEUT % 55.1 % (16.0-70.0); PLATELET COUNT 417 TH/MM3 (150-450); RED BLOOD COUNT 3.29 MIL/MM3 (4.50-5.90); RED CELL DISTRIBUTION WIDTH 12.8 % (11.6-17.2); WHITE BLOOD COUNT 7.5 TH/MM3 (4.0-11.0)
[2016-12-19 08:00] VITALS: BP 156/70; PULSE 84; RESP 20; O2SAT 93
[2016-12-19 08:09] LABS: BICARBONATE 28.1 MEQ/L (21.0-32.0); POTASSIUM 3.9 MEQ/L (3.5-5.1)
[2016-12-19] MEDS: DOCUSATE SODIUM 100 MG CAP PO SCH ×2 (09:00→23:04)
[2016-12-19] MEDS: SODIUM CHLORIDE FLUSH BID IVF SCH ×2 (09:00→23:04)
[2016-12-19 09:30] VITALS: O2SAT 99
--- NOTE | 2016-12-19 11:00 | HHI.PR ---
Subjective Remarks Follow up for left thigh abscess, DM. Mr. Harrell is doing well. Denies any fever, chills. He continues to have drainage through the wound VAC. Patient reports that he feels 1000 times better. Objective Vitals Vital Signs Date Time Temp Pulse Resp B/P Pulse Ox O2 Delivery O2 Flow Rate FiO2 12/19/16 08:00 84 20 156/70 93 12/19/16 04:38 98.0 81 16 133/62 96 12/18/16 23:00 98.4 80 16 124/58 96 12/18/16 21:10 Room Air 12/18/16 20:51 98.5 89 16 129/66 95 12/18/16 16:07 98.3 77 20 153/73 98 12/18/16 12:15 72 16 155/85 97 Nasal Cannula 2 12/18/16 12:00 72 16 164/85 98 Nasal Cannula 2 12/18/16 11:45 76 16 163/89 98 Nasal Cannula 2 12/18/16 11:39 98.6 90 16 168/89 98 Nasal Cannula 2 I/O 12/18/16 12/18/16 12/18/16 12/19/16 12/19/16 12/19/16 07:00 15:00 23:00 07:00 15:00 23:00 Intake Total 0 ml 592 ml 650 ml 500 ml Output Total 875 ml 1400 ml 900 ml Balance -875 ml -808 ml 650 ml -400 ml Intake Oral 0 ml 240 ml 650 ml 500 ml IV Total 352 ml Output Urine Total 800 ml 1400 ml 900 ml Drainage Total 75 ml # Voids 1 4 # Bowel Movements 0 0 1 0 Result Diagram: 12/19/16 0634 12/19/16 0634 Imaging Last Impressions Lower Extremity CT 12/15/16 0000 Signed Impressions: Service Date/Time: Thursday, December 15, 2016 09:46 - CONCLUSION: 1. The drainage catheter is appropriately positioned within the fluid collection. A very small volume of fluid remains within the collection as detailed above. No CT evidence to suggest osteomyelitis. Leo Rocha Jr., MD Abscess Drainage X-Ray 12/10/16 0000 Signed Impressions: Service Date/Time: Saturday, December 10, 2016 18:05 - CONCLUSION: 1. Uncomplicated catheter placement for left thigh abscess. 2. There may be multiple components. The more superficial fluid collection along the myofascial border was accessed and drained. I do not believe patient could tolerate deeper drainage in his current clinical condition. 3. After a few days of percutaneous drainage, would recommend repeat imaging of the left thigh with either ultrasound or CT for further characterization. If loculated collections persist , patient may need additional drainage catheters. Gino Bennett MD Objective Remarks GENERAL: Alert, Oriented x 3, NAD. SKIN: Warm and dry. HEAD: Normocephalic. EYES: No scleral icterus. No injection or drainage. NECK: Supple, trachea midline. No JVD or lymphadenopathy. CARDIOVASCULAR: Regular rate and rhythm without murmurs, gallops, or rubs. RESPIRATORY: Breath sounds equal bilaterally. No accessory muscle use. GASTROINTESTINAL: Abdomen soft, non-tender, nondistended. MUSCULOSKELETAL: No cyanosis, or edema. Wound vac placed on the left lateral thigh. Wound vac area looks clean, no surrounding erythema. BACK: Nontender without obvious deformity. No CVA tenderness. Procedures 12/10/16 ultrasound-guided drainage of abscess, left thigh A/P Problem List: (1) Cellulitis and abscess of leg ICD Code: L02.419 Status: Acute (2) Diabetes mellitus ICD Code: E11.9 Status: Acute Assessment and Plan Mr. Harrell is a 66 year old male who was admitted on 12/10/2016 due to insidious onset of left thigh pain that started 3 weeks prior to this admission. Patient has been undergoing Synvisc injection for this arthritic knee. After he developed left thigh pain, swelling, an MRI study indicated possible hematoma. However, due to significant pain, swelling, erythema noted by the orthopedic surgeon, patient was admitted to the hospital and ID was consulted. WBC count on admission was 23K. Patient was started on treatment for abscess instead of hematoma. ID started patient on Vancomycin and Cefazolin intravenously. Wound cx showed MSSA. Pigtail drainage was placed by IR for abscess drainage on the day of admission. Patient underwent I&D, debridement of left thigh abscess and wound VAC placement on 12/18/[address] Ronal Mcmanus. - Left thigh abscess -Culture growing MSSA. Blood cx no growth to date. -ID is following. Continue cefazolin 2g Q8hrs. -s/p surgical I&D, debridement, Wound vac placement 12/18/2016. -Continue [place], Morphine. - Diabetes mellitus type 2 -Increase Levemir 17 units to 20 units QHS and sliding scale insulin. -HbA1c 12.7. -Blood glucose is not well controlled. Start pre-meal coverage with 5 units of Aspart TIDAC. Full code. Ambulation. Pharmacological prophylaxis when okay with Orthopedic surgery. Problem Qualifiers (1) Diabetes mellitus: Hal Yee DO Dec 19, 2016 11:00 am
[2016-12-19] MEDS: ACETAMINOPHEN/HYDROcodone 325 MG/5 MG TAB PO PRN ×2 (11:59→16:42)
[2016-12-19 12:00] VITALS: BP 143/65; PULSE 83; RESP 20; TEMP 98; O2SAT 96
--- NOTE | 2016-12-19 15:25 | HHI.IDPN ---
Subjective Subjective Remarks Notes reviewed Temps okay Slowly improving S/P I and D, placement of wound vac 12/18 Sat up for 5 hours today Moving LLE better Still not able to put weight on his LLE C/S pending No diarrhea No rash Antibiotics Cefazolin Lines PIV Past Medical History Reviewed Allergies: Coded Allergies: No Known Allergies (Unverified , 12/10/16) Objective . Vital Signs Date Time Temp Pulse Resp B/P Pulse Ox O2 Delivery O2 Flow Rate FiO2 12/19/16 12:00 98.0 83 20 143/65 96 12/19/16 09:30 99 21 12/19/16 08:00 84 20 156/70 93 12/19/16 04:38 98.0 81 16 133/62 96 12/18/16 23:00 98.4 80 16 124/58 96 12/18/16 21:10 Room Air 12/18/16 20:51 98.5 89 16 129/66 95 12/18/16 16:07 98.3 77 20 153/73 98 12/18/16 12/18/16 12/19/16 15:00 23:00 07:00 Intake Total 592 ml 650 ml 500 ml Output Total 1400 ml 900 ml Balance -808 ml 650 ml -400 ml Intake Oral 240 ml 650 ml 500 ml IV Total 352 ml Output Urine Total 1400 ml 900 ml # Voids 1 4 # Bowel Movements 0 1 0 . Laboratory Tests Test 12/19/16 06:34 White Blood Count 7.5 TH/MM3 Red Blood Count 3.29 MIL/MM3 Hemoglobin 9.8 GM/DL Hematocrit 29.1 % Mean Corpuscular Volume 88.6 FL Mean Corpuscular Hemoglobin 29.9 PG Mean Corpuscular Hemoglobin 33.7 % Concent Red Cell Distribution Width 12.8 % Platelet Count 417 TH/MM3 Mean Platelet Volume 7.5 FL Neutrophils (%) (Auto) 55.1 % Lymphocytes (%) (Auto) 30.8 % Monocytes (%) (Auto) 12.5 % Eosinophils (%) (Auto) 1.0 % Basophils (%) (Auto) 0.6 % Neutrophils # (Auto) 4.1 TH/MM3 Lymphocytes # (Auto) 2.3 TH/MM3 Monocytes # (Auto) 0.9 TH/MM3 Eosinophils # (Auto) 0.1 TH/MM3 Basophils # (Auto) 0.0 TH/MM3 CBC Comment DIFF FINAL Differential Comment Laboratory Tests Test 12/19/16 06:34 Sodium Level 137 MEQ/L Potassium Level 3.9 MEQ/L Chloride Level 102 MEQ/L Carbon Dioxide Level 28.1 MEQ/L Anion Gap 7 MEQ/L Blood Urea Nitrogen 12 MG/DL Creatinine 0.74 MG/DL Estimat Glomerular Filtration 106 ML/MIN Rate Random Glucose 203 MG/DL Calcium Level 8.4 MG/DL Microbiology Date/Time Procedure Status Source Growth 12/18/16 10:52 Gram Stain - Final Resulted Fluid Other 12/18/16 10:52 Body Fluid Culture Resulted Fluid Other Pending 12/18/16 10:52 Gram Stain - Final Resulted Fluid Other 12/18/16 10:52 Body Fluid Culture Resulted Fluid Other Pending 12/18/16 10:52 Fungal Smear - Final Resulted Fluid Other NO FUNGAL ELEMENTS SEEN. 12/18/16 10:52 Fungal Culture Resulted Fluid Other Pending Imaging Lower Extremity CT 12/15/16 0000 Signed Impressions: Service Date/Time: Thursday, December 15, 2016 09:46 - CONCLUSION: 1. The drainage catheter is appropriately positioned within the fluid collection. A very small volume of fluid remains within the collection as detailed above. No CT evidence to suggest osteomyelitis. Leo Rocha Jr., MD Abscess Drainage X-Ray 12/10/16 0000 Signed Impressions: Service Date/Time: Saturday, December 10, 2016 18:05 - CONCLUSION: 1. Uncomplicated catheter placement for left thigh abscess. 2. There may be multiple components. The more superficial fluid collection along the myofascial border was accessed and drained. I do not believe patient could tolerate deeper drainage in his current clinical condition. 3. After a few days of percutaneous drainage, would recommend repeat imaging of the left thigh with either ultrasound or CT for further characterization. If loculated collections persist , patient may need additional drainage catheters. Gino Bennett MD Physical Exam GENERAL: awake and alert, NAD SKIN: Cool and dry. No generalized rash. HEENT: [place] conjunctivae. No scleral icterus. Moist mucosa NECK: Supple and non-tender CARDIOVASCULAR: Regular rate and rhythm without murmurs, gallops, or rubs. RESPIRATORY: Clear to auscultation. Breath sounds equal bilaterally. No wheezes , rales, or rhonchi. GASTROINTESTINAL: Abdomen soft, non-tender, nondistended. Bowel sounds are present and normoactive. No guarding. MUSCULOSKELETAL: Extremities without clubbing, cyanosis, or edema in RLE. LLE - has wound vac in place, redness almost gone, induration present but less NEUROLOGICAL: Grossly nonfocal PSYCH: Calm and cooperative LINE: PIV with no evidence of infection Assessment & Plan Remarks IMPRESSION Infected hematoma, L thigh, abscess - Has percutaneous drain placed, culture with MSSA - S/P I and D and wound vac 12/18 Likely with diabetes RECOMMENDATION Continue IV Ancef Monitor progress Follow new C/S Pain control Spoke with Lisha Mcclendon MD Dec 19, 2016 15:25
[2016-12-19 16:00] VITALS: BP 141/64; PULSE 85; RESP 20; TEMP 98.2; O2SAT 95
[2016-12-19 20:00] VITALS: BP 158/72; PULSE 85; RESP 16; TEMP 98.1; O2SAT 95
[2016-12-19] MEDS: ACETAMINOPHEN/HYDROcodone 325 MG/10 MG TAB PO PRN (23:03)
[2016-12-19] MEDS: INSULIN DETEMIR 100 UNITS/ML VIAL SQ SCH (23:04)
[2016-12-20] VITALS (7 sets, daily range): BP systolic 135–176; BP diastolic 58–81; PULSE 77–83; RESP 16–20; TEMP 97.9–98.4; O2SAT 94–98
[2016-12-20] MEDS: LACTATED RINGER'S 1000 ML INJ 1,000 ML IV SCH ×2 (05:52→17:14)
[2016-12-20] MEDS: ceFAZolin 2 GM PREMIX 50 ML IV SCH ×3 (06:15→22:00)
[2016-12-20] MEDS: INSULIN ASPART SUPPLEMENTAL SCALE SQ SCH ×4 (06:15→21:00)
[2016-12-20] MEDS: ACETAMINOPHEN/HYDROcodone 325 MG/10 MG TAB PO PRN ×2 (06:16→22:10)
[2016-12-20 07:14] LABS: AUTOMATED NEUTROPHIL # 4.5 TH/MM3 (1.8-7.7); BASOPHIL # 0.1 TH/MM3 (0-0.2); BASOPHIL % 0.7 % (0.0-2.0); EOSINOPHIL # 0.1 TH/MM3 (0-0.4); EOSINOPHIL % 1.8 % (0.0-4.0); HEMATOCRIT 29.9 % (39.0-51.0); HEMO FLAGS DIFF FINAL; LYMPH % 27.2 % (9.0-44.0); LYMPHOCYTE # 2.2 TH/MM3 (1.0-4.8); MEAN CORPUSCULAR HEMOGLOBIN 30.1 PG (27.0-34.0); MEAN CORPUSCULAR HGB CONC 33.8 % (32.0-36.0); MONO % 13.7 % (0.0-8.0); NEUT % 56.6 % (16.0-70.0); PLATELET COUNT 410 TH/MM3 (150-450); RED BLOOD COUNT 3.37 MIL/MM3 (4.50-5.90)
--- NOTE | 2016-12-20 07:56 | HHI.PR ---
Subjective Remarks Follow up for left thigh abscess, DM. Patient is doing well. No fever, chills. Wants to go home soon. Objective Vitals Vital Signs Date Time Temp Pulse Resp B/P Pulse Ox O2 Delivery O2 Flow Rate FiO2 12/20/16 04:00 97.9 83 20 135/58 97 12/20/16 00:00 98.4 82 16 150/68 98 12/19/16 22:10 Room Air 12/19/16 20:00 98.1 85 16 158/72 95 12/19/16 16:00 98.2 85 20 141/64 95 12/19/16 13:00 14 12/19/16 12:00 98.0 83 20 143/65 96 12/19/16 09:30 99 21 12/19/16 08:00 96 Room Air 12/19/16 08:00 84 20 156/70 93 I/O 12/19/16 12/19/16 12/19/16 12/20/16 12/20/16 12/20/16 07:00 15:00 23:00 07:00 15:00 23:00 Intake Total 500 ml 960 ml 840 ml 360 ml Output Total 900 ml 900 ml 725 ml Balance -400 ml 960 ml -60 ml -365 ml Intake Oral 500 ml 960 ml 840 ml 360 ml Output Urine Total 900 ml 900 ml 725 ml # Voids 2 1 # Bowel Movements 0 0 1 1 Result Diagram: 12/20/16 0626 12/19/16 0634 Imaging Last Impressions Lower Extremity CT 12/15/16 0000 Signed Impressions: Service Date/Time: Thursday, December 15, 2016 09:46 - CONCLUSION: 1. The drainage catheter is appropriately positioned within the fluid collection. A very small volume of fluid remains within the collection as detailed above. No CT evidence to suggest osteomyelitis. Leo Rocha Jr., MD Abscess Drainage X-Ray 12/10/16 0000 Signed Impressions: Service Date/Time: Saturday, December 10, 2016 18:05 - CONCLUSION: 1. Uncomplicated catheter placement for left thigh abscess. 2. There may be multiple components. The more superficial fluid collection along the myofascial border was accessed and drained. I do not believe patient could tolerate deeper drainage in his current clinical condition. 3. After a few days of percutaneous drainage, would recommend repeat imaging of the left thigh with either ultrasound or CT for further characterization. If loculated collections persist , patient may need additional drainage catheters. Gino Bennett MD Objective Remarks GENERAL: Alert, Oriented x 3, NAD. SKIN: Warm and dry. HEAD: Normocephalic. EYES: No scleral icterus. No injection or drainage. NECK: Supple, trachea midline. No JVD or lymphadenopathy. CARDIOVASCULAR: Regular rate and rhythm without murmurs, gallops, or rubs. RESPIRATORY: Breath sounds equal bilaterally. No accessory muscle use. GASTROINTESTINAL: Abdomen soft, non-tender, nondistended. MUSCULOSKELETAL: No cyanosis, or edema. Wound vac placed on the left lateral thigh. Wound vac area looks clean, no surrounding erythema. BACK: Nontender without obvious deformity. No CVA tenderness. Procedures 12/10/16 ultrasound-guided drainage of abscess, left thigh A/P Problem List: (1) Cellulitis and abscess of leg ICD Code: L02.419 Status: Acute (2) Diabetes mellitus ICD Code: E11.9 Status: Acute Assessment and Plan Mr. Harrell is a 66 year old male who was admitted on 12/10/2016 due to insidious onset of left thigh pain that started 3 weeks prior to this admission. Patient has been undergoing Synvisc injection for this arthritic knee. After he developed left thigh pain, swelling, an MRI study indicated possible hematoma. However, due to significant pain, swelling, erythema noted by the orthopedic surgeon, patient was admitted to the hospital and ID was consulted. WBC count on admission was 23K. Patient was started on treatment for abscess instead of hematoma. ID started patient on Vancomycin and Cefazolin intravenously. Wound cx showed MSSA. Pigtail drainage was placed by IR for abscess drainage on the day of admission. Patient underwent I&D, debridement of left thigh abscess and wound VAC placement on 12/18/[address] Ronal Mcmanus. - Left thigh abscess -Culture growing MSSA. Blood cx no growth to date. -ID is following. Continue cefazolin 2g Q8hrs. -s/p surgical I&D, debridement, Wound vac placement 12/18/2016. -Continue [place], Morphine. - Diabetes mellitus type 2 -Continue Levemir 20 units QHS and sliding scale insulin. -HbA1c 12.7. -Blood glucose is better controlled. Continue pre-meal coverage with 5 units of Aspart TIDAC. Full code. Ambulation. Pharmacological prophylaxis when okay with Orthopedic surgery. Problem Qualifiers (1) Diabetes mellitus: Hal Yee DO Dec 20, 2016 7:56 am
[2016-12-20] MEDS: INSULIN ASPART 1,000 UNITS/10 ML VIAL SQ SCH ×3 (08:34→17:15)
[2016-12-20] MEDS: DOCUSATE SODIUM 100 MG CAP PO SCH ×2 (08:35→21:00)
[2016-12-20] MEDS: SODIUM CHLORIDE FLUSH BID IVF SCH ×2 (08:35→21:00)
--- NOTE | 2016-12-20 10:24 | PD.ORT.PN ---
Subjective Subjective Remarks Patient comfortable. Pain controlled. Left thigh feeling better. Objective Vitals Vital Signs Date Time Temp Pulse Resp B/P Pulse Ox O2 Delivery O2 Flow Rate FiO2 12/20/16 08:34 18 12/20/16 04:00 97.9 83 20 135/58 97 12/20/16 00:00 98.4 82 16 150/68 98 12/19/16 22:10 Room Air 12/19/16 20:00 98.1 85 16 158/72 95 12/19/16 16:00 98.2 85 20 141/64 95 12/19/16 13:00 14 12/19/16 12:00 98.0 83 20 143/65 96 I/O 12/19/16 12/19/16 12/19/16 12/20/16 12/20/16 12/20/16 07:00 15:00 23:00 07:00 15:00 23:00 Intake Total 500 ml 960 ml 840 ml 360 ml Output Total 900 ml 900 ml 725 ml Balance -400 ml 960 ml -60 ml -365 ml Intake Oral 500 ml 960 ml 840 ml 360 ml Output Urine Total 900 ml 900 ml 725 ml # Voids 2 1 # Bowel Movements 0 0 1 1 Result Diagram: 12/20/16 0626 12/19/16 0634 Objective Remarks Left thigh wound vac in place no pain with passive motion of foot +NVI neg homans sign, no calf tenderness 2+ dorsalis pedis pulses Assessment & Plan Assessment and Plan POD # 2 s/p l thigh I&D with application of wound vac Cultures from L thigh aspiration;+ Staph,MSSA Blood cultures - Neg PT- WBAT LLE, out of bed with assistive ambulation Discharge home thursday with c if stable wound VAC change on thursday monitor Efraín Farley Dec 20, 2016 10:24
[2016-12-20] MEDS: INSULIN DETEMIR 100 UNITS/ML VIAL SQ SCH (21:00)
[2016-12-20] MEDS: MORPHINE SULFATE 4 MG/ML INJ IV PRN (23:16)
[2016-12-21] VITALS (7 sets, daily range): BP systolic 145–180; BP diastolic 69–81; PULSE 73–86; RESP 18–20; TEMP 97.4–98.4; O2SAT 94–98
[2016-12-21] MEDS: LACTATED RINGER'S 1000 ML INJ 1,000 ML IV SCH ×2 (04:11→16:41)
[2016-12-21] MEDS: ceFAZolin 2 GM PREMIX 50 ML IV SCH ×3 (05:57→20:59)
[2016-12-21] MEDS: ACETAMINOPHEN/HYDROcodone 325 MG/10 MG TAB PO PRN ×3 (05:57→20:59)
[2016-12-21] MEDS: INSULIN ASPART SUPPLEMENTAL SCALE SQ SCH ×4 (06:00→21:01)
--- NOTE | 2016-12-21 07:58 | HHI.PR ---
Subjective Remarks Follow-up for left thigh abscess status post I&D and wound VAC placement. Patient is currently doing well. Denies any fever or chills. Objective Vitals Vital Signs Date Time Temp Pulse Resp B/P Pulse Ox O2 Delivery O2 Flow Rate FiO2 12/21/16 04:00 97.4 73 18 168/79 95 12/21/16 00:00 97.8 73 18 145/70 98 12/20/16 22:47 Room Air 12/20/16 20:00 98.3 78 19 175/81 97 12/20/16 16:00 98.1 77 20 176/71 95 12/20/16 12:00 98.1 78 20 161/72 96 12/20/16 10:07 94 21 12/20/16 08:34 18 12/20/16 08:00 97.9 81 20 156/70 97 I/O 12/20/16 12/20/16 12/20/16 12/21/16 12/21/16 12/21/16 07:00 15:00 23:00 07:00 15:00 23:00 Intake Total 360 ml 1488 ml 380 ml 425 ml Output Total 725 ml 1350 ml 1550 ml 1425 ml Balance -365 ml 138 ml -1170 ml -1000 ml Intake Oral 360 ml 960 ml 380 ml 425 ml IV Total 528 ml Output Urine Total 725 ml 1300 ml 1550 ml 1425 ml Drainage Total 50 ml # Bowel Movements 1 0 1 Result Diagram: 12/20/16 0626 12/19/16 0634 Imaging Last Impressions Lower Extremity CT 12/15/16 0000 Signed Impressions: Service Date/Time: Thursday, December 15, 2016 09:46 - CONCLUSION: 1. The drainage catheter is appropriately positioned within the fluid collection. A very small volume of fluid remains within the collection as detailed above. No CT evidence to suggest osteomyelitis. Leo Rocha Jr., MD Abscess Drainage X-Ray 12/10/16 0000 Signed Impressions: Service Date/Time: Saturday, December 10, 2016 18:05 - CONCLUSION: 1. Uncomplicated catheter placement for left thigh abscess. 2. There may be multiple components. The more superficial fluid collection along the myofascial border was accessed and drained. I do not believe patient could tolerate deeper drainage in his current clinical condition. 3. After a few days of percutaneous drainage, would recommend repeat imaging of the left thigh with either ultrasound or CT for further characterization. If loculated collections persist , patient may need additional drainage catheters. Gino Bennett MD Objective Remarks GENERAL: Alert, Oriented x 3, NAD. SKIN: Warm and dry. HEAD: Normocephalic. EYES: No scleral icterus. No injection or drainage. NECK: Supple, trachea midline. No JVD or lymphadenopathy. CARDIOVASCULAR: Regular rate and rhythm without murmurs, gallops, or rubs. RESPIRATORY: Breath sounds equal bilaterally. No accessory muscle use. GASTROINTESTINAL: Abdomen soft, non-tender, nondistended. MUSCULOSKELETAL: No cyanosis, or edema. Wound vac placed on the left lateral thigh. Wound vac area looks clean, no surrounding erythema. BACK: Nontender without obvious deformity. No CVA tenderness. Procedures 12/10/16 ultrasound-guided drainage of abscess, left thigh A/P Problem List: (1) Cellulitis and abscess of leg ICD Code: L02.419 Status: Acute (2) Diabetes mellitus ICD Code: E11.9 Status: Acute Assessment and Plan Mr. Harrell is a 66 year old male who was admitted on 12/10/2016 due to insidious onset of left thigh pain that started 3 weeks prior to this admission. Patient has been undergoing Synvisc injection for this arthritic knee. After he developed left thigh pain, swelling, an MRI study indicated possible hematoma. However, due to significant pain, swelling, erythema noted by the orthopedic surgeon, patient was admitted to the hospital and ID was consulted. WBC count on admission was 23K. Patient was started on treatment for abscess instead of hematoma. ID started patient on Vancomycin and Cefazolin intravenously. Wound cx showed MSSA. Pigtail drainage was placed by IR for abscess drainage on the day of admission. Patient underwent I&D, debridement of left thigh abscess and wound VAC placement on 12/18/[address] Ronal Mcmanus. - Left thigh abscess -Culture growing MSSA. Blood cx no growth to date. -ID is following. Continue cefazolin 2g Q8hrs. -Will discuss with Dr. Mcclendon (ID) on 12/22/2016 about any possible oral regimen. Cephalexin, Dicloxacillin, Doxycycline, Bactrim could be considered. -s/p surgical I&D, debridement, Wound vac placement 12/18/2016. -Continue [place], Morphine. - Diabetes mellitus type 2 -Continue Levemir 20 units QHS and sliding scale insulin. -HbA1c 12.7. -Blood glucose is better controlled. Continue pre-meal coverage with 5 units of Aspart TIDAC. Full code. Ambulation. Pharmacological prophylaxis when okay with Orthopedic surgery. Problem Qualifiers (1) Diabetes mellitus: Hal Yee DO Dec 21, 2016 7:58 am
[2016-12-21] MEDS: INSULIN ASPART 1,000 UNITS/10 ML VIAL SQ SCH ×3 (08:10→16:40)
[2016-12-21] MEDS: DOCUSATE SODIUM 100 MG CAP PO SCH ×2 (08:10→21:00)
[2016-12-21] MEDS: SODIUM CHLORIDE FLUSH BID IVF SCH ×2 (08:10→21:00)
--- NOTE | 2016-12-21 15:41 | PD.ORT.PN ---
Subjective Subjective Remarks Patient comfortable. Denies any fever, chills or sweats. Spouse present. RN at bedside changing wound vac dressing. Objective Vitals Vital Signs Date Time Temp Pulse Resp B/P Pulse Ox O2 Delivery O2 Flow Rate FiO2 12/21/16 10:22 96 21 12/21/16 08:00 98.0 76 20 180/78 95 12/21/16 04:00 97.4 73 18 168/79 95 12/21/16 00:00 97.8 73 18 145/70 98 12/20/16 22:47 Room Air 12/20/16 20:00 98.3 78 19 175/81 97 12/20/16 16:00 98.1 77 20 176/71 95 I/O 12/20/16 12/20/16 12/20/16 12/21/16 12/21/16 12/21/16 07:00 15:00 23:00 07:00 15:00 23:00 Intake Total 360 ml 1488 ml 380 ml 425 ml 603 ml Output Total 725 ml 1350 ml 1550 ml 1425 ml 50 ml Balance -365 ml 138 ml -1170 ml -1000 ml 553 ml Intake Oral 360 ml 960 ml 380 ml 425 ml IV Total 528 ml 603 ml Output Urine Total 725 ml 1300 ml 1550 ml 1425 ml Drainage Total 50 ml 50 ml # Bowel Movements 1 0 1 Result Diagram: 12/20/16 0626 12/19/16 0634 Objective Remarks Left thigh wound healing well, good perfusion to tissue, no signs of infection noted serosanguineous drainage noted no pain with passive motion of foot +NVI neg homans sign, no calf tenderness 2+ dorsalis pedis pulses Assessment & Plan Assessment and Plan POD # 3 s/p l thigh I&D with application of wound vac Cultures from L thigh aspiration;+ Staph,MSSA PT- WBAT LLE, out of bed with assistive ambulation Discharge home thursday with c if stable wound VAC change today monitor Efraín Farley Dec 21, 2016 15:41
[2016-12-21] MEDS: MORPHINE SULFATE 4 MG/ML INJ IV PRN (15:43)
[2016-12-21] MEDS: INSULIN DETEMIR 100 UNITS/ML VIAL SQ SCH (21:00)
[2016-12-22] VITALS (9 sets, daily range): BP systolic 142–177; BP diastolic 64–86; PULSE 70–80; RESP 18; TEMP 97.6–98.4; O2SAT 95–98
[2016-12-22] MEDS: MORPHINE SULFATE 4 MG/ML INJ IV PRN (04:01)
[2016-12-22] MEDS: LACTATED RINGER'S 1000 ML INJ 1,000 ML IV SCH ×3 (05:45→20:45)
[2016-12-22] MEDS: ACETAMINOPHEN/HYDROcodone 325 MG/10 MG TAB PO PRN ×4 (06:39→22:40)
[2016-12-22] MEDS: ceFAZolin 2 GM PREMIX 50 ML IV SCH ×3 (06:40→22:35)
[2016-12-22] MEDS: INSULIN ASPART SUPPLEMENTAL SCALE SQ SCH ×4 (06:43→22:38)
[2016-12-22] MEDS ORDERED: NORC5TAB PO (07:09)
--- NOTE | 2016-12-22 07:12 | HHI.FF ---
Face to Face Verification Diagnosis: (1) Cellulitis and abscess of leg Physical Therapy Gait training, Safety evaluation, Transfer training, bed to chair Right LE Weight Bearing: WB as tolerated Left LE Weight Bearing: WB as tolerated Nursing RN Days per Week: 3 x Week(s): 2 Nursing: Other (wound vac change every 3 days ) I have seen patient Jeison Harrell on 12/22/16. My clinical findings support the need for the requested home health care services because: Deconditioned w/ increased weakness I certify that my clinical findings support that this patient is homebound because: Post-op weakness Vicente Mcmanus MD Dec 22, 2016 07:12
--- NOTE | 2016-12-22 07:15 | PD.ORT.PN ---
Subjective Subjective Remarks Patient continues to have increased L thigh pain since yesterday after wound vac change patient states he is unable to go home because of that pain No sob,no chest pain Objective Vitals Vital Signs Date Time Temp Pulse Resp B/P Pulse Ox O2 Delivery O2 Flow Rate FiO2 12/22/16 04:00 97.8 74 18 142/72 97 12/22/16 00:00 98.1 77 18 148/70 96 12/21/16 20:00 98.4 82 19 155/69 97 12/21/16 16:00 98.1 86 20 159/72 94 12/21/16 12:00 98.0 82 20 177/81 97 12/21/16 10:22 96 21 12/21/16 08:00 98.0 76 20 180/78 95 I/O 12/21/16 12/21/16 12/21/16 12/22/16 12/22/16 12/22/16 07:00 15:00 23:00 07:00 15:00 23:00 Intake Total 425 ml 1323 ml 320 ml 120 ml Output Total 1425 ml 700 ml 1150 ml 550 ml Balance -1000 ml 623 ml -830 ml -430 ml Intake Oral 425 ml 720 ml 320 ml 120 ml IV Total 603 ml Output Urine Total 1425 ml 650 ml 1150 ml 550 ml Drainage Total 50 ml # Bowel Movements 0 Result Diagram: 12/20/16 0626 12/19/16 0634 Objective Remarks Left thigh VAC intact, wound healing well, good perfusion to tissue, no signs of infection noted no pain with passive motion of foot +NVI neg homans sign, no calf tenderness 2+ dorsalis pedis pulses Assessment & Plan Assessment and Plan POD # 4 s/p l thigh I&D with application of wound vac Cultures from L thigh aspiration;+ Staph,MSSA PT- WBAT LLE, out of bed with assistive ambulation Discharge home Thursday with c if stable and pain controlled wound VAC change tomorrow Vicente Mcmanus MD Dec 22, 2016 07:15
[2016-12-22] MEDS: INSULIN ASPART 1,000 UNITS/10 ML VIAL SQ SCH ×3 (08:00→17:00)
[2016-12-22] MEDS: DOCUSATE SODIUM 100 MG CAP PO SCH ×2 (08:09→22:40)
[2016-12-22] MEDS: SODIUM CHLORIDE FLUSH BID IVF SCH ×2 (10:00→22:41)
--- NOTE | 2016-12-22 13:01 | HHI.PR ---
Subjective Remarks Follow-up for left thigh abscess status post I&D and wound VAC placement. Mr. Harrell is doing well. Sitting in his chair. He wants to go home. He complains of pain 4-5 on a scale of 1-10. No fever or chills. Likely discharge home tomorrow. Objective Vitals Vital Signs Date Time Temp Pulse Resp B/P Pulse Ox O2 Delivery O2 Flow Rate FiO2 12/22/16 08:26 98 21 12/22/16 08:05 97.6 70 18 164/77 95 12/22/16 04:00 97.8 74 18 142/72 97 12/22/16 00:00 98.1 77 18 148/70 96 12/21/16 20:00 98.4 82 19 155/69 97 12/21/16 16:00 98.1 86 20 159/72 94 I/O 12/21/16 12/21/16 12/21/16 12/22/16 12/22/16 12/22/16 07:00 15:00 23:00 07:00 15:00 23:00 Intake Total 425 ml 1323 ml 320 ml 120 ml Output Total 1425 ml 700 ml 1150 ml 550 ml Balance -1000 ml 623 ml -830 ml -430 ml Intake Oral 425 ml 720 ml 320 ml 120 ml IV Total 603 ml Output Urine Total 1425 ml 650 ml 1150 ml 550 ml Drainage Total 50 ml # Bowel Movements 0 Result Diagram: 12/20/16 0626 12/19/16 0634 Imaging Last Impressions Lower Extremity CT 12/15/16 0000 Signed Impressions: Service Date/Time: Thursday, December 15, 2016 09:46 - CONCLUSION: 1. The drainage catheter is appropriately positioned within the fluid collection. A very small volume of fluid remains within the collection as detailed above. No CT evidence to suggest osteomyelitis. Leo Rocha Jr., MD Abscess Drainage X-Ray 12/10/16 0000 Signed Impressions: Service Date/Time: Saturday, December 10, 2016 18:05 - CONCLUSION: 1. Uncomplicated catheter placement for left thigh abscess. 2. There may be multiple components. The more superficial fluid collection along the myofascial border was accessed and drained. I do not believe patient could tolerate deeper drainage in his current clinical condition. 3. After a few days of percutaneous drainage, would recommend repeat imaging of the left thigh with either ultrasound or CT for further characterization. If loculated collections persist , patient may need additional drainage catheters. Gino Bennett MD Objective Remarks GENERAL: Alert, Oriented x 3, NAD. SKIN: Warm and dry. HEAD: Normocephalic. EYES: No scleral icterus. No injection or drainage. NECK: Supple, trachea midline. No JVD or lymphadenopathy. CARDIOVASCULAR: Regular rate and rhythm without murmurs, gallops, or rubs. RESPIRATORY: Breath sounds equal bilaterally. No accessory muscle use. GASTROINTESTINAL: Abdomen soft, non-tender, nondistended. MUSCULOSKELETAL: No cyanosis, or edema. Wound vac placed on the left lateral thigh. Wound vac area looks clean, no surrounding erythema. BACK: Nontender without obvious deformity. No CVA tenderness. Procedures 12/10/16 ultrasound-guided drainage of abscess, left thigh A/P Problem List: (1) Cellulitis and abscess of leg ICD Code: L02.419 Status: Acute (2) Diabetes mellitus ICD Code: E11.9 Status: Acute Assessment and Plan Mr. Harrell is a 66 year old male who was admitted on 12/10/2016 due to insidious onset of left thigh pain that started 3 weeks prior to this admission. Patient has been undergoing Synvisc injection for this arthritic knee. After he developed left thigh pain, swelling, an MRI study indicated possible hematoma. However, due to significant pain, swelling, erythema noted by the orthopedic surgeon, patient was admitted to the hospital and ID was consulted. WBC count on admission was 23K. Patient was started on treatment for abscess instead of hematoma. ID started patient on Vancomycin and Cefazolin intravenously. Wound cx showed MSSA. Pigtail drainage was placed by IR for abscess drainage on the day of admission. Patient underwent I&D, debridement of left thigh abscess and wound VAC placement on 12/18/[address] Ronal Mcmanus. - Left thigh abscess -Culture growing MSSA. Blood cx no growth to date. -ID is following. Continue cefazolin 2g Q8hrs. -Will discuss with Dr. Mcclendon (ID) today about any possible oral regimen. Cephalexin, Dicloxacillin, Doxycycline, Bactrim could be considered. -s/p surgical I&D, debridement, Wound vac placement 12/18/2016. -Continue [place], Morphine. - Diabetes mellitus type 2 -Continue Levemir 20 units QHS and sliding scale insulin. -HbA1c 12.7. -Blood glucose is better controlled. Continue pre-meal coverage with 5 units of Aspart TIDAC. - Hypertension - likely due to pain. If HTN is persistent after pain controlled , we will start patient on Amlodipine 5mg Qday. Full code. Ambulation. Pharmacological prophylaxis when okay with Orthopedic surgery. Problem Qualifiers (1) Diabetes mellitus: Hal Yee DO Dec 22, 2016 1:01 pm
--- NOTE | 2016-12-22 13:05 | HHI.IDPN ---
Subjective Subjective Remarks Notes reviewed Temps okay Slowly improving Severe pain when he had his wound vac changed Still with difficulty putting weight on his LLE S/P I and D, placement of wound vac 12/18 No diarrhea No rash Antibiotics Cefazolin Lines PIV Past Medical History Reviewed Allergies: Coded Allergies: No Known Allergies (Unverified , 12/10/16) Objective . Vital Signs Date Time Temp Pulse Resp B/P Pulse Ox O2 Delivery O2 Flow Rate FiO2 12/22/16 08:26 98 21 12/22/16 08:05 97.6 70 18 164/77 95 12/22/16 04:00 97.8 74 18 142/72 97 12/22/16 00:00 98.1 77 18 148/70 96 12/21/16 20:00 98.4 82 19 155/69 97 12/21/16 16:00 98.1 86 20 159/72 94 12/21/16 12/21/16 12/22/16 15:00 23:00 07:00 Intake Total 1323 ml 320 ml 120 ml Output Total 700 ml 1150 ml 550 ml Balance 623 ml -830 ml -430 ml Intake Oral 720 ml 320 ml 120 ml IV Total 603 ml Output Urine Total 650 ml 1150 ml 550 ml Drainage Total 50 ml # Bowel Movements [address] 12/15/16 0000 Signed Impressions: Service Date/Time: Thursday, December 15, 2016 09:46 - CONCLUSION: 1. The drainage catheter is appropriately positioned within the fluid collection. A very small volume of fluid remains within the collection as detailed above. No CT evidence to suggest osteomyelitis. Leo Rocha Jr., MD Abscess Drainage X-Ray 12/10/16 0000 Signed Impressions: Service Date/Time: Saturday, December 10, 2016 18:05 - CONCLUSION: 1. Uncomplicated catheter placement for left thigh abscess. 2. There may be multiple components. The more superficial fluid collection along the myofascial border was accessed and drained. I do not believe patient could tolerate deeper drainage in his current clinical condition. 3. After a few days of percutaneous drainage, would recommend repeat imaging of the left thigh with either ultrasound or CT for further characterization. If loculated collections persist , patient may need additional drainage catheters. Gino Bennett MD Physical Exam GENERAL: awake and alert, NAD SKIN: Cool and dry. No generalized rash. HEENT: [place] conjunctivae. No scleral icterus. Moist mucosa NECK: Supple and non-tender CARDIOVASCULAR: Regular rate and rhythm without murmurs, gallops, or rubs. RESPIRATORY: Clear to auscultation. Breath sounds equal bilaterally. No wheezes , rales, or rhonchi. GASTROINTESTINAL: Abdomen soft, non-tender, nondistended. Bowel sounds are present and normoactive. No guarding. MUSCULOSKELETAL: Extremities without clubbing, cyanosis, or edema in RLE. LLE - has wound vac in place, redness almost gone, induration still present NEUROLOGICAL: Grossly nonfocal PSYCH: Calm and cooperative LINE: PIV with no evidence of infection Assessment & Plan Remarks IMPRESSION Infected hematoma, L thigh, abscess - Has percutaneous drain placed, culture with MSSA - S/P I and D and wound vac 12/18 Likely with diabetes RECOMMENDATION Continue IV Ancef - give until January 06 Monitor progress Pain control Because of severity and extent of his infection would like to give him a longer course of IV Abx PICC CM consult for home IV Abx Explained plan to patient Lisha Mcclendon MD Dec 22, 2016 13:05
[2016-12-22] MEDS: amLODIPine BESYLATE 5 MG TAB PO SCH (17:33)
[2016-12-22] MEDS: INSULIN DETEMIR 100 UNITS/ML VIAL SQ SCH (22:37)
[2016-12-23] VITALS (8 sets, daily range): BP systolic 144–170; BP diastolic 63–83; PULSE 73–80; RESP 16–20; TEMP 97.3–98.3; O2SAT 96–97
[2016-12-23] MEDS: ceFAZolin 2 GM PREMIX 50 ML IV SCH ×2 (06:07→15:18)
[2016-12-23] MEDS: ACETAMINOPHEN/HYDROcodone 325 MG/10 MG TAB PO PRN ×2 (06:09→15:18)
[2016-12-23] MEDS: INSULIN ASPART SUPPLEMENTAL SCALE SQ SCH ×3 (06:11→15:23)
--- NOTE | 2016-12-23 07:34 | PD.ORT.PN ---
Subjective Subjective Remarks Patient has decreased L thigh pain since yesterday patient states he is able to go home today No sob,no chest pain Objective Vitals Vital Signs Date Time Temp Pulse Resp B/P Pulse Ox O2 Delivery O2 Flow Rate FiO2 12/23/16 07:23 97 21 12/23/16 05:00 156/76 12/23/16 04:00 97.9 74 18 160/74 97 12/23/16 00:00 98.1 80 18 158/80 96 12/22/16 22:10 96 21 12/22/16 20:00 98.4 80 18 158/74 96 12/22/16 16:05 97.8 75 18 177/86 98 12/22/16 12:07 97.9 73 18 153/64 95 12/22/16 08:26 98 21 12/22/16 08:06 97.9 70 18 164/77 95 12/22/16 08:05 97.6 70 18 164/77 95 I/O 12/22/16 12/22/16 12/22/16 12/23/16 12/23/16 12/23/16 07:00 15:00 23:00 07:00 15:00 23:00 Intake Total 120 ml 720 ml 360 ml 1567 ml Output Total 550 ml 2500 ml 4300 ml 950 ml Balance -430 ml -1780 ml -3940 ml 617 ml Intake Oral 120 ml 720 ml 360 ml 120 ml IV Total 1447 ml Output Urine Total 550 ml 2500 ml 4300 ml 950 ml # Bowel Movements 0 0 0 Result Diagram: 12/20/16 0626 12/19/16 0634 Objective Remarks Left thigh VAC intact, wound healing well, good perfusion to tissue, no signs of infection noted no pain with passive motion of foot +NVI neg homans sign, no calf tenderness 2+ dorsalis pedis pulses Assessment & Plan Assessment and Plan POD # 5 s/p l thigh I&D with application of wound vac Cultures from L thigh aspiration;+ Staph,MSSA PT- WBAT LLE, out of bed with assistive ambulation Discharge home today with [facility] wound VAC change today and continue at home for 1 week. Cont IV antibiotics until January 06 Ortho stable Vicente Mcmanus MD Dec 23, 2016 07:34
--- NOTE | 2016-12-23 08:27 | HHI.FF ---
Infusion Therapy Location of Infusion Therapy: Home Health Care IV Infusion Order Patient Information Patient Weight 80.4 kg Diagnosis: Diagnosis Extensive abscess L thigh, MSSA Coded Allergies: No Known Allergies (Unverified , 12/10/16) Administer Medication Cefazolin 2 grams IV q 8 hours IV Ancef 2 gm Q8H with CADD plus pump Stop Treatment: Jan 06, 2017 Additional Information Venous access: Other (Midline) Additional Instructions [x] Peripheral flush and dressing changes per protocol [x] Implanted port and central glue line operator: * Implanted port: 10 ml Normal Saline followed by 5 ml Heparin 100 units/ml Heparin flush after each use and monthly to maintain. [] May leave port accessed during therapy. [] May leave peripheral site accessed for duration of therapy. [x] If patient has SOB or respiratory distress, check oxygen saturation. If less than 90% or clinical signs of respiratory distress, administer oxygen at 2 L/min. via nasal cannula and notify physician. [x] Anaphylaxis/Reaction orders: * Stop infusion. * Keep IV line open with saline flush. * Notify physician. * Monitor vital signs every 15 minutes until symptoms resolve. * Check Oxygen saturation; Oxygen at 2 L/min. via nasal cannula if less than 90% or clinical signs of respiratory distress. * Administer diphenhydramine (Benadryl) 25 mg IV STAT, (unless patient has received as pre-med). May repeat once, if necessary. * Solu-Cortef 250 mg IVP over 30-60 seconds, use 100 mg vials for each dissolution. * Epinephrine (1mg/1 ml) 0.3 mg subcutaneously or IVP now with any signs of respiratory distress. * Check with physician for new additional pre-med orders if patient is re- challenged or re-treated. [x] May remove PICC line when treatment complete, after confirming with Physician. [x] If the patient is admitted to the hospital, the ED, or transferred via EVAC , complete transfer form including medication reconciliation order sheet. Laboratory Tests Weekly Labs: CBC w/diff, Creatinine (Labs every Thursday - copy to az) Lisha Mcclendon MD Dec 23, 2016 08:27
[2016-12-23] MEDS: SODIUM CHLORIDE FLUSH BID IVF SCH (09:00)
[2016-12-23] MEDS: LACTATED RINGER'S 1000 ML INJ 1,000 ML IV SCH ×2 (10:24→17:38)
[2016-12-23] MEDS: amLODIPine BESYLATE 5 MG TAB PO SCH (10:25)
[2016-12-23] MEDS: INSULIN ASPART 1,000 UNITS/10 ML VIAL SQ SCH ×3 (10:25→17:38)
[2016-12-23] MEDS: DOCUSATE SODIUM 100 MG CAP PO SCH (10:25)
[2016-12-23] MEDS ORDERED: AMLO5 PO (14:39)
[2016-12-23] MEDS ORDERED: NOVOLOGP2 SQ ×2 (14:41→14:42)
[2016-12-23] MEDS ORDERED: LEVEMIR SQ (14:41)
[2016-12-23] MEDS ORDERED: LANCETS1 MI1 (15:28)
[2016-12-23] MEDS ORDERED: INSU-173 (15:28)
[2016-12-23] MEDS ORDERED: BLOOD GLUCOSE M1 KIT (15:28)
--- NOTE | 2016-12-23 15:46 | HHI.FF ---
Infusion Therapy Location of Infusion Therapy: Home Health Care IV Infusion Order Patient Information Appointment Date: Dec 24, 2016 Patient Weight 80.4 kg Diagnosis: (1) Cellulitis and abscess of leg Coded Allergies: No Known Allergies (Unverified , 12/10/16) Administer Medication Cefazolin 4.5 grams IV (Could not order exact amount. Please administer 6 gram Q24 hours. ) q 24 hours Start Treatment: Dec 24, 2016 Stop Treatment: Jan 06, 2017 Additional Information Venous access: Other (midline. ) Additional Instructions [x] Peripheral flush and dressing changes per protocol [x] Implanted port and central extrusion line operator: * Implanted port: 10 ml Normal Saline followed by 5 ml Heparin 100 units/ml Heparin flush after each use and monthly to maintain. [] May leave port accessed during therapy. [] May leave peripheral site accessed for duration of therapy. [x] If patient has SOB or respiratory distress, check oxygen saturation. If less than 90% or clinical signs of respiratory distress, administer oxygen at 2 L/min. via nasal cannula and notify physician. [x] Anaphylaxis/Reaction orders: * Stop infusion. * Keep IV line open with saline flush. * Notify physician. * Monitor vital signs every 15 minutes until symptoms resolve. * Check Oxygen saturation; Oxygen at 2 L/min. via nasal cannula if less than 90% or clinical signs of respiratory distress. * Administer diphenhydramine (Benadryl) 25 mg IV STAT, (unless patient has received as pre-med). May repeat once, if necessary. * Solu-Cortef 250 mg IVP over 30-60 seconds, use 100 mg vials for each dissolution. * Epinephrine (1mg/1 ml) 0.3 mg subcutaneously or IVP now with any signs of respiratory distress. * Check with physician for new additional pre-med orders if patient is re- challenged or re-treated. [x] May remove PICC line when treatment complete, after confirming with Physician. [x] If the patient is admitted to the hospital, the ED, or transferred via EVAC , complete transfer form including medication reconciliation order sheet. Laboratory Tests Weekly Labs: CBC w/diff, Creatinine (labs every thursday - copy to Dr. Mcclendon. ) Hal Yee DO Dec 23, 2016 3:46 pm
--- NOTE | 2016-12-23 18:27 | HHI.PR ---
Subjective Remarks Follow-up for left thigh abscess status post I&D and wound VAC placement. Mr. Harrell is doing well. He is waiting to go home. Waiting for wound vac to be delivered. No fever, chills. He received diabetic education. Objective Vitals Vital Signs Date Time Temp Pulse Resp B/P Pulse Ox O2 Delivery O2 Flow Rate FiO2 12/23/16 16:00 98.0 78 20 144/63 97 12/23/16 12:00 98.3 73 16 147/83 97 12/23/16 08:00 97.3 74 16 170/74 97 12/23/16 07:23 97 21 12/23/16 05:00 156/76 12/23/16 04:00 97.9 74 18 160/74 97 12/23/16 00:00 98.1 80 18 158/80 96 12/22/16 22:10 96 21 12/22/16 20:00 98.4 80 18 158/74 96 I/O 12/22/16 12/22/16 12/22/16 12/23/16 12/23/16 12/23/16 07:00 15:00 23:00 07:00 15:00 23:00 Intake Total 120 ml 720 ml 360 ml 1567 ml 600 ml Output Total 550 ml 2500 ml 4300 ml 950 ml 1500 ml Balance -430 ml -1780 ml -3940 ml 617 ml -900 ml Intake Oral 120 ml 720 ml 360 ml 120 ml 600 ml IV Total 1447 ml Output Urine Total 550 ml 2500 ml 4300 ml 950 ml 1500 ml # Bowel Movements 0 0 0 1 Result Diagram: 12/20/16 0626 12/19/16 0634 Imaging Last Impressions Lower Extremity CT 12/15/16 0000 Signed Impressions: Service Date/Time: Thursday, December 15, 2016 09:46 - CONCLUSION: 1. The drainage catheter is appropriately positioned within the fluid collection. A very small volume of fluid remains within the collection as detailed above. No CT evidence to suggest osteomyelitis. Leo Rocha Jr., MD Abscess Drainage X-Ray 12/10/16 0000 Signed Impressions: Service Date/Time: Saturday, December 10, 2016 18:05 - CONCLUSION: 1. Uncomplicated catheter placement for left thigh abscess. 2. There may be multiple components. The more superficial fluid collection along the myofascial border was accessed and drained. I do not believe patient could tolerate deeper drainage in his current clinical condition. 3. After a few days of percutaneous drainage, would recommend repeat imaging of the left thigh with either ultrasound or CT for further characterization. If loculated collections persist , patient may need additional drainage catheters. Gino Bennett MD Objective Remarks GENERAL: Alert, Oriented x 3, NAD. SKIN: Warm and dry. HEAD: Normocephalic. EYES: No scleral icterus. No injection or drainage. NECK: Supple, trachea midline. No JVD or lymphadenopathy. CARDIOVASCULAR: Regular rate and rhythm without murmurs, gallops, or rubs. RESPIRATORY: Breath sounds equal bilaterally. No accessory muscle use. GASTROINTESTINAL: Abdomen soft, non-tender, nondistended. MUSCULOSKELETAL: No cyanosis, or edema. Wound vac placed on the left lateral thigh. Wound vac area looks clean, no surrounding erythema. BACK: Nontender without obvious deformity. No CVA tenderness. Procedures 12/10/16 ultrasound-guided drainage of abscess, left thigh A/P Problem List: (1) Cellulitis and abscess of leg ICD Code: L02.419 Status: Acute (2) Diabetes mellitus ICD Code: E11.9 Status: Acute Assessment and Plan Mr. Harrell is a 66 year old male who was admitted on 12/10/2016 due to insidious onset of left thigh pain that started 3 weeks prior to this admission. Patient has been undergoing Synvisc injection for this arthritic knee. After he developed left thigh pain, swelling, an MRI study indicated possible hematoma. However, due to significant pain, swelling, erythema noted by the orthopedic surgeon, patient was admitted to the hospital and ID was consulted. WBC count on admission was 23K. Patient was started on treatment for abscess instead of hematoma. ID started patient on Vancomycin and Cefazolin intravenously. Wound cx showed MSSA. Pigtail drainage was placed by IR for abscess drainage on the day of admission. Patient underwent I&D, debridement of left thigh abscess and wound VAC placement on 12/18/[address] Ronal Mcmanus. - Left thigh abscess -Culture growing MSSA. Blood cx no growth to date. -ID is following. Continue cefazolin 2g Q8hrs. -s/p surgical I&D, debridement, Wound vac placement 12/18/2016. -Continue [place], Morphine. -Home with home health today pending Wound vac delivery. Antibiotics Infusion orders in place. - Diabetes mellitus type 2 -Continue Levemir 20 units QHS and sliding scale insulin. -HbA1c 12.7. -Blood glucose is better controlled. Continue pre-meal coverage with 5 units of Aspart TIDAC. -Ordered diabetic supplies as well. - Hypertension - Continue Amlodipine 5mg Qday. Full code. Ambulation. Problem Qualifiers (1) Diabetes mellitus: Hal Yee DO Dec 23, 2016 18:27
--- NOTE | 2017-01-05 09:26 | HHI.DS ---
Discharge Summary Admission Date Dec 10, 2016 at 17:20 Discharge Date: Dec 23, 2016 Admitting Diagnosis Left thigh abscess Diagnosis: (1) Cellulitis and abscess of leg Diagnosis: Principal Procedures Left thigh I&D with irrigation and debridement and application of wound vac Brief History This is a 66 year old male patient who presents with the following history. Patient was under the care of Dr. Snyder for left knee osteoarthritis and was undergoing hyalgan knee injection. After his third injection, he had onset of swelling and pain involving his left thigh. Under further review of history, patient had been up and down ladders undergoing work in his barn etc. MRI scan was obtained by Dr. Snyder which showed apparent left thigh hematoma and was placed in a canvas knee splint and advised to follow up with us. Patient was first evaluated by us on Dec 10 where patient was having severe pain involving his thigh and had erythema and tenderness. Decision was made to schedule patient for incision and drainage of left thigh the following day. Routine lab work was gathered that day and WBC came back 23k and glucose of upper 300's. It was then decided to admit patient to the hospital that afternoon for further medical and surgical evaluation. PE at Discharge Left thigh VAC intact, wound healing well, good perfusion to tissue, no signs of infection noted no pain with passive motion of foot +NVI neg homans sign, no calf tenderness 2+ dorsalis pedis pulses Hospital Course Patient was admitted the afternoon of Dec 10 due to WBC of 23k and glucose of upper 300's. Interventional radiology was consulted to place a pig catheter of left thigh abscess. Patient had improvement of his symptoms after drain was placed but was having persistence of his pain and inability to place weight on his leg. Patient was taken to the operating room on 12/18 for left thigh abscess incision and drainage and placement of wound vac. Patient progressed well following wound vac placement. He was also seen and followed by medical and infectious disease during his hospital stay. Patient was discharged home on 12/23 with home health care nursing and PT and also was discharged with PICC line for administration of IV abx. He was in stable condition at discharge. It was stressed to patient about his uncontrolled diabetes and he needed further evaluation and management with Dr. Aguilera for his hgb A1C of 12.8. Pt Condition on Discharge: Stable Discharge Disposition: Disch w/ Home Health Serv Discharge Instructions Diet Instructions: Diabetic Diet Activities You Can Perform: Weight Bearing as Vicente Greco MD Jan 05, 2017 09:26
== END 2016-12-23 20:54 | disposition home health service (06) | DRG 603 ==
LOC: UNDOADMIN 15:55 → N04A 15:55 → EDSTATUS 12-11 14:00
PROVIDERS: ADMIT Orthopaedic Surgery Orthopaedic Surgery of the Spine; ATTEND Orthopaedic Surgery Orthopaedic Surgery of the Spine
PROC: 0H9JX0Z Drainage of Left Upper Leg Skin with Drainage Device, External Approach (ICD-10-PCS; 2016-12-10)
PROC: 0H9JXZX Drainage of Left Upper Leg Skin, External Approach, Diagnostic (ICD-10-PCS; principal; 2016-12-18 10:21)
DX: L02.416 Cutaneous abscess of left lower limb (principal); I10 Essential (primary) hypertension; A49.01 Methicillin susceptible Staphylococcus aureus infection, unspecified site; E11.9 Type 2 diabetes mellitus without complications; M17.12 Unilateral primary osteoarthritis, left knee
CPT/HCPCS: 10160; 36415; 73700; 76937; 76942; 80048; 80053; 82948; 83036; 85007; 85025; 85027; 85652; 86140; 86403; 87040; 87070; 87102; 87186; 87205; 87206; 93005; C1729; C1769; J0690; J1100; J1580; J1815; J2250; J2270; J2405; J2765; J3010; J3370; J7050; J7120

== ENCOUNTER → 2016-12-10 | Outpatient (CLI) | payer BC ==
[~2016-12-10] MED LIST: AMLO5 PO; BLOOD GLUCOSE M1 KIT; HYDR-3516 PO; INSU-173; LANCETS1 MI1; LEVEMIR SQ; MSM500CA PO; MULTTAB67 PO; NORC5TAB PO; NOVOLOGP2 SQ; WALKER WHEELS/F1 MIS
[2016-12-10 15:02] LABS: AUTOMATED NEUTROPHIL # 19.3 TH/MM3 (1.8-7.7); BASOPHIL % 0.2 % (0.0-2.0); EOSINOPHIL # 0.1 TH/MM3 (0-0.4); EOSINOPHIL % 0.3 % (0.0-4.0); HEMATOCRIT 38.8 % (39.0-51.0); HEMO FLAGS DIFF FINAL; LYMPH % 6.6 % (9.0-44.0); LYMPHOCYTE # 1.5 TH/MM3 (1.0-4.8); MEAN CELL VOLUME 89.8 FL (80.0-100.0); MEAN CORPUSCULAR HEMOGLOBIN 30.4 PG (27.0-34.0); MEAN CORPUSCULAR HGB CONC 33.8 % (32.0-36.0); MONO % 8.7 % (0.0-8.0); NEUT % 84.2 % (16.0-70.0); PLATELET COUNT 477 TH/MM3 (150-450); RED BLOOD COUNT 4.32 MIL/MM3 (4.50-5.90); RED CELL DISTRIBUTION WIDTH 12.9 % (11.6-17.2)
[2016-12-10 15:37] LABS: BICARBONATE 21.5 MEQ/L (21.0-32.0); POTASSIUM 4.2 MEQ/L (3.5-5.1)
--- NOTE | 2016-12-11 08:51 | EKG ---
Date Performed: 12/10/2016 Time Performed: 15:04:49 PTAGE: 66 years EKG: Sinus rhythm POSSIBLE LEFT ATRIAL ENLARGEMENT MARKED LEFT AXIS DEVIATION PATTERN CONSISTENT WITH PULMONARY DISEAS E ABNORMAL ECG NO PREVIOUS TRACING DOCTOR: Zaheer Mtz Interpretating Date/Time 12/11/2016 08:45:29
== END ==
LOC: CPRE 14:18
PROVIDERS: ATTEND Orthopaedic Surgery Orthopaedic Surgery of the Spine
DX: Z01.810 Encounter for preprocedural cardiovascular examination (principal); Z01.812 Encounter for preprocedural laboratory examination; T14.8 Other injury of unspecified body region; R94.31 Abnormal electrocardiogram [ECG] [EKG]
CPT/HCPCS: 36415; 80048; 85025; 93005